=== PATIENT | female | born 1985 | race Caucasian/White ===

== ENCOUNTER → 2017-08-15 07:37 | Outpatient (CLI) | payer OTHER, SELFPAY ==
--- NOTE | 2017-08-15 07:41 | US_ITS ---
US abdomen limited: HISTORY: Epigastric pain and cramping ITS.REASON: RUQ PAIN, UPPER EPIGASTRIC PAIN ORDERING PHYSICIAN: Siddharth Padilla MD PATIENT AGE: 32 years COMPARISON: None FINDINGS: PANCREAS: Unremarkable. No obvious mass or abnormal fluid collection. No ductal dilatation LIVER: No focal liver lesions demonstrated. Homogeneous echogenicity. No intrahepatic biliary ductal dilatation evident RIGHT KIDNEY: Unremarkable. Normal size and echogenicity. No hydronephrosis GALLBLADDER: No gallstones, gallbladder wall thickening, pericholecystic fluid, or biliary dilatation. IMPRESSION: Negative gallbladder/right upper quadrant ultrasound
== END ==
PROVIDERS: PCP Family Medicine; Visit Provider Surgery
DX: R10.11 Right upper quadrant pain (principal); R10.13 Epigastric pain
CPT/HCPCS: 76705

== ENCOUNTER → 2019-08-21 08:45 | Outpatient (CLI) | payer OTHER, SELFPAY ==
[2019-08-21 09:26] LABS: Basophils # 0.1 K/mm3 (0-0.2); Basophils % 0.4 % (0.1-2.0); Eosinophils # 0.3 K/mm3 (0.0-0.4); Eosinophils % 1.7 % (0.1-12.0); Hematocrit 43.2 % (37.0-47.0); Hemoglobin 14.4 g/dL (12.2-16.2); Lymphocytes # 3.3 K/mm3 (0.7-4.5); Lymphocytes % 21.8 % (10-50); Mean Corpuscular HGB Conc 33.3 g/dL (31.8-35.4); Mean Corpuscular Volume 90.2 fl (81-99); Mean Platelet Volume 8.5 fl (7.4-10.4); Monocytes # 0.6 K/mm3 (0.1-1.0); Neutrophils # 10.9 K/mm3 (1.8-7.8); Neutrophils % 72.1 % (37.0-80.0); Platelet Count 495 K/mm3 (142-424); Red Blood Count 4.79 M/mm3 (4.20-5.40); Red Cell Distribution Width 12.3 % (11.5-17.5); White Blood Count 15.1 K/mm3 (4.8-10.8)
[2019-08-21 09:33] LABS: MANUAL DIFFERENTIAL MANUAL DIFFERENTIAL (MANUAL DIFF)
[2019-08-21 09:43] LABS: Alanine Aminotransferase 49 U/L (9-52); Albumin Level 3.7 g/dL (3.4-5.0); Albumin/Globulin Ratio 0.9 (1.1-1.8); Alkaline Phosphatase 107 U/L (46-116); Anion Gap 14.9 mEq/L (5-15); Aspartate Amino Transferase 27 U/L (15-37); Bilirubin,Total 0.5 mg/dL (0.2-1.0); Blood Urea Nitrogen 8 mg/dL (7-18); Calcium 8.8 mg/dL (8.5-10.1); Carbon Dioxide 25 mmol/L (21.0-32.0); Chloride 105 mmol/L (98-107); Chol/HDL Ratio 5.6 (1-3.5); Cholesterol 197 mg/dL (140-200); Creatinine,Serum 0.68 mg/dL (0.55-1.02); Estimated Glomerular Filt Rate 99 ml/min (>60); GFR (African American) 120 ML/MIN (>60); Globulin 4.2 gm/dl (1.3-3.2); Glucose 98 mg/dL (74-106); HDL Cholesterol 35 mg/dL (29-89); LDL Cholesterol 137 mg/dL (0-130); Potassium 3.9 mmoL/L (3.5-5.1); Sodium 141 mmol/L (137-145); Thyroid Stimulating Hormone 4.23 uIU/ml (0.358-3.740); Total Protein,Serum 7.9 g/dL (6.4-8.2); Triglycerides 123 mg/dL (30-200); VLDL Cholesterol 25 mg/dL (0-40)
[2019-08-21 10:32] LABS: Hemoglobin A1C 5.5 % (0.0-7.0)
[2019-08-21 10:50] LABS: Eosinophils % 1 % (0-3); Lymphocytes % 23 % (10-50); Monocytes % 4 % (2-9); Neutrophils % 72 % (42-76); Platelet Estimate Slight Increase; RBC Morphology Normal; Total Cells Counted 100
== END ==
PROVIDERS: Visit Provider Obstetrics & Gynecology Gynecology
DX: Z00.00 Encounter for general adult medical examination without abnormal findings (principal)
CPT/HCPCS: 80053; 80061; 83036; 83525; 84443; 85007; 85025

== ENCOUNTER 2019-09-04 03:53 | Inpatient (IN) ==
[2019-09-04 04:14] LABS: Chloride 101 mmol/L (98-107); Sodium 136 mmol/L (136-145)
[2019-09-04 04:17] LABS: Amylase 35 U/L (30-110); Anion Gap 14.7 mEq/L (5-15); Blood Urea Nitrogen 7 mg/dl (7-17); Calcium 9.1 mg/dl (8.4-10.2); Carbon Dioxide 24 mmol/L (22.0-30.0); Glucose 148 mg/dl (74-100)
[2019-09-04 04:18] LABS: Basophils # 0.1 K/mm3 (0-0.2); Basophils % 0.3 % (0.1-2.0); Eosinophils # 0.4 K/mm3 (0.0-0.4); Eosinophils % 1.5 % (0.1-12.0); Hematocrit 43.8 % (37.0-47.0); Hemoglobin 14.8 g/dL (12.2-16.2); Lymphocytes # 4.5 K/mm3 (0.7-4.5); Lymphocytes % 17.3 % (10-50); Mean Corpuscular HGB Conc 33.9 g/dL (31.8-35.4); Mean Corpuscular Volume 89.2 fl (81-99); Mean Platelet Volume 7.6 fl (7.4-10.4); Monocytes # 1.4 K/mm3 (0.1-1.0); Monocytes % 5.2 % (1.7-9.3); Neutrophils # 19.7 K/mm3 (1.8-7.8); Neutrophils % 75.7 % (37.0-80.0); Platelet Count 629 K/mm3 (142-424); Red Blood Count 4.91 M/mm3 (4.20-5.40); Red Cell Distribution Width 12.1 % (11.5-17.5)
[2019-09-04 04:47] LABS: Bilirubin,Indirect 0.6 mg/dL (0.0-0.9); Bilirubin,Total 0.6 mg/dl (0.2-1.3); Bilirubin,Unconjugated 0.6 mg/dL (0.0-1.1)
[2019-09-04 04:48] LABS: Total Protein,Serum 7.4 g/dl (6.3-8.2)
[2019-09-04 05:34] LABS: Eosinophils % 2 % (0-3); Lymphocytes % 25 % (10-50); Monocytes % 2 % (2-9); Neutrophils % 71 % (42-76); Total Cells Counted 100
[2019-09-04 05:35] LABS: RBC Morphology Normal
--- NOTE | 2019-09-04 05:42 | Emergency Department Note ---
ED Disposition Clinical Impression: Atrial fibrillation Qualifiers: Atrial fibrillation type: unspecified Qualified Code(s): I48.91 - Unspecified atrial fibrillation Leukocytosis Qualifiers: Leukocytosis type: unspecified Qualified Code(s): D72.829 - Elevated white blood cell count, unspecified Disposition: Admitted as Observation Condition on Discharge: Good Referrals: Provider,Referral, [Primary Care Provider] - - Critical Care Critical Care Time: No Attestation: On 09/04/19, the high probability of a clinically significant, sudden or life threatening deterioration of the following system(s) required my full and direct attention, intervention and personal management. The time I documented below is in addition to time spent performing reported procedures but includes the following listed in this critical care notation. Medical Decision Making - Medical Records Medical records reviewed: Yes: I reviewed the patient's medical records. - Juve Inquiry Pt receiving controlled substance: No Vital Signs: 09/04/19 03:54 09/04/19 04:13 09/04/19 04:29 Temperature 99.9 F H Temperature Source Oral Pulse Rate [Right] 167 H 165 H 159 H Respiratory Rate 20 16 Blood Pressure [Right Arm] 131/97 H 125/95 H 153/76 H Blood Pressure Mean [Right Arm] 108 105 101 02 Sat by Pulse Oximetry 97 96 97 Oxygen Delivery Method Room Air Room Air 09/04/19 04:38 09/04/19 04:58 09/04/19 05:06 Temperature Temperature Source Pulse Rate [Right] 153 H 167 H 154 H Respiratory Rate Blood Pressure [Right Arm] 117/71 145/108 H 138/77 Blood Pressure Mean [Right Arm] 86 120 97 02 Sat by Pulse Oximetry 97 95 Oxygen Delivery Method Room Air 09/04/19 05:37 Temperature Temperature Source Pulse Rate [Right] 178 H Respiratory Rate Blood Pressure [Right Arm] 107/76 L Blood Pressure Mean [Right Arm] 86 02 Sat by Pulse Oximetry Oxygen Delivery Method - Lab Data Lab results reviewed: Yes: I reviewed the patient's lab results. Lab Results 09/04/19 03:50: WBC 26.0 H*, RBC 4.91, Hgb 14.8, Hct 43.8, MCV 89.2, MCH 30.2, MCHC 33.9, RDW 12.1, Plt Count 629 H, MPV 7.6, Neut % (Auto) 75.7, Lymph % (Auto) 17.3, [place] % (Auto) 5.2, Eos % (Auto) 1.5, Baso % (Auto) 0.3, Neut # (Auto) 19.7 H, Lymph # (Auto) 4.5, [place] # (Auto) 1.4 H, Eos # (Auto) 0.4, Baso # (Auto) 0.1, Total Counted 100, Neutrophils % (Manual) 71, Lymphocytes % (Manual) 25, Monocytes % (Manual) 2, Eosinophils % (Manual) 2, Platelet Estimate Normal, RBC Morphology Normal 09/04/19 03:50: Sodium 136, Potassium 3.7, Chloride 101, Carbon Dioxide 24, Anion Gap 14.7, BUN 7, Creatinine 0.60, Estimated Creat Clear 152, Estimated GFR 114, Est GFR ( Amer) 138, Glucose 148 H, Calcium 9.1, Troponin I < 0.01, Amylase 35, Lipase 62 09/04/19 03:50: Influenza Type A Ag Negative, Influenza Type B Ag Negative 09/04/19 03:50: Total Bilirubin 0.6, Direct Bilirubin 0.0, Conjugated Bilirubin 0.0, Indirect Bilirubin 0.6, Unconjugated Bilirubin 0.6, AST 48 H, ALT 63, Alkaline Phosphatase 129 H, Total Protein 7.4, Albumin 4.0 09/04/19 03:50: Thyroxine (T4) 12.5 H 09/04/19 04:35: Lactate 1.2 Result diagrams: 09/04/19 03:50 09/04/19 03:50 Orders (Tests/Meds): ED MEDICATIONS Generic Name Dose Route Start Last Admin Trade Name Freq PRN Reason Stop Dose Admin Sodium Chloride 1,000 mls @ 999 mls/hr 09/04/19 04:15 09/04/19 04:10 Sod Chlor 0.9% 1000ml Bag IV 09/04/19 05:15 999 mls/hr .Q1H1M ALFA Administration Diltiazem HCl 100 mg/ Sodium 100 mls @ 5 mls/hr 09/04/19 04:19 09/04/19 04:10 Chloride IV 10/04/19 04:18 5 mls/hr .Q20H ALFA Administration Discontinued Medications Generic Name Dose Route Start Last Admin Trade Name Freq PRN Reason Stop Dose Admin Diltiazem HCl 10 mg 09/04/19 04:04 09/04/19 04:05 Cardizem 25mg/5ml Vial IV 09/04/19 04:05 10 mg ONCE ONE Administration ORDERS Category Date Time Status T4 (Thyroxine) Stat Lab 09/04/19 03:50 Results Thyroid Stimulating Hormone Stat Lab 09/04/19 03:50 Results Troponin I Q3H Lab 09/04/19 07:15 Ordered Troponin I Q3H Lab 09/04/19 10:15 Ordered Urinalysis and Microscopic Stat Lab 09/04/19 04:03 Ordered Blood Culture Stat Micro 09/04/19 04:35 Received - Radiology Data #1 Image(s): Chest Image Reviewed: Yes I reviewed the patient's radiology image Preliminary Findings: Normal/NAD - ECG Data Tracing #1 Arrhythmias present: afib Ischemic changes: non-specific ST-T wave changes - Physician Consults Physician Consulted: alejandro Reason -: Admission Arrhythmia/Palpitations HPI - General Chief Complaint: Arrhythmia/Palpitations Stated Complaint: NEW ONSET AFIB Time Seen by Provider: 09/04/19 04:00 Mode of Arrival: Ambulatory Source of Information: Patient, Medical Record Limitations: No Limitations - History of Present Illness HPI narrative: onset of inc heart rate this am - no chest pain or syncope - pt with hx of thyroid disease - MD complaint: "heart racing" Onset (ago): hour(s) Duration: constant Severity: moderate Context: occurred during rest Associated symptoms: denies other symptoms - Related Data Home Medications Medication Instructions Recorded Confirmed Aspirin [Aspir 81] 81 mg PO DAILY 08/29/19 09/04/19 Escitalopram Oxalate [Lexapro] 20 mg PO DAILY 08/29/19 09/04/19 Esomeprazole Magnesium [Nexium] 40 mg PO DAILY 08/29/19 09/04/19 Levothyroxine Sodium 125 mcg PO DAILY 08/29/19 09/04/19 [Levothyroxine 125mcg (0.125mg) Tab] Norethindrone 1 tab PO DAILY 08/29/19 09/04/19 carvediloL [Carvedilol 6.25mg Tab] 6.25 mg PO BID 08/29/19 09/04/19 Azithromycin 1 tab PO DAILY 09/04/19 09/04/19 Brompheniramine/Pseudoephed/Dm 473 ml PO NEEDED PRN 09/04/19 09/04/19 [Ekwkqnaapl-Nnvgnyljfxc-Am Syr] Ondansetron [Zofran 4mg ODT] 4 mg PO Q6H PRN 09/04/19 09/04/19 predniSONE [Deltasone 20mg 1 tab PO DAILY 09/04/19 09/04/19 tablet] Allergies Allergy/AdvReac Type Severity Reaction Status Date / Time No Known Allergies Allergy Unverified 06/25/17 14:44 [facility] History - Hepatitis A Screen Drug use history?: No High risk sexual behaviors?: No History of sexually transmitted infection?: No Currently employed?: No Childcare worker?: No Do you have indoor plumbing?: Yes Do you have electricity?: Yes Attestation statement:: This patient has been screened for Hepatitis A risk factors. I have reviewed the patient's past medical history: Yes - Social History Smoking Status: Current every day smoker Tobacco Type: cigarettes # Packs/Day (cigarettes): 1 Alcohol Intake: never Occupational Status: employed ROS Obtained: Yes All systems reviewed & no additional complaints - Constitutional Constitutional: Denies fever(s) - Eyes Eyes: Denies change in vision - ENT Ears, Nose, Mouth, and Throat: Denies sore throat - Cardiovascular Cardiovascular: Denies chest pain, Denies dyspnea, Reports rapid heart rate - Respiratory Respiratory: No cough - Gastrointestinal Gastrointestingal: Denies: abdominal pain, vomiting - Genitourinary Female Genitourinary: Denies hematuria - Musculoskeletal Musculoskeletal: Denies joint pain - Integumentary/Breasts Skin/Breast: Denies rash - Neurologic Neurologic: Denies focal weakness, Denies frequent falls, Denies seizure-like activity Physical Exam - General General appearance: alert - Head Head exam: normocephalic - Eye Eye exam: Present: PERRL, EOMI. Absent: scleral icterus - ENT ENT exam: Present: mucous membranes dry - Neck Neck exam: Present: trachea midline - Respiratory Respiratory exam: Present: normal lung sounds bilaterally. Absent: respiratory distress - Cardiovascular Cardiovascular exam: Present: irregular rhythm - Abdominal Exam Abdominal exam: Present: soft - Extremities Exam Extremities exam: Absent: calf tenderness - Neurological Exam Neurological exam: Present: alert, oriented X3, CN II-XII intact - Psychiatric Psychiatric exam: Present: normal affect - Skin Skin exam: Absent: rash
[2019-09-04 05:47] LABS: Thyroid Stimulating Hormone 6.75 uIU/mL (0.465-4.68)
[2019-09-04 05:59] LABS: Microscopic, Urine URINE MICROSCOPIC (MICROSCOPIC)
[2019-09-04 06:11] LABS: Appearance,Urine CLEAR (Clear); Bilirubin,Urine Negative (Negative); Blood, Urine Negative (Negative); Color,Urine YELLOW (Yellow); Glucose,Urine (UA) Negative (Negative); Ketones,Urine Negative (Negative); Leukocyte Esterase,Urine 1+ (Negative); Protein,Urine Negative (Negative); Urobilinogen,Urine 0.2 EU/dl (0.2)
[2019-09-04 06:24] LABS: Bacteria,Urine 1+ /lpf; RBC,Urine Occasional #/hpf (0-3)
--- NOTE | 2019-09-04 07:15 | Pharmacy Consult Notes ---
[facility] Pharmacy VTE Monitoring - Patient Demographics Admission date: 09/04/19 Report Date: 09/04/19 Time: 07:15 Allergies/Adverse Reactions: Patient Allergies No Known Allergies Allergy (Unverified 06/25/17 14:44) Height: 1.83 m Weight: 145.15 kg Patient Problems: Current Active Problems Atrial fibrillation (Acute) Leukocytosis (Acute) - VTE Risk Labs: VTE Related Lab Results Hgb 14.8 g/dL (12.2-16.2) 09/04/19 03:50 Hct 43.8 % (37.0-47.0) 09/04/19 03:50 Plt Count 629 K/mm3 (142-424) H 09/04/19 03:50 BUN 7 mg/dl (7-17) 09/04/19 03:50 Creatinine 0.60 mg/dl (0.52-1.04) 09/04/19 03:50 Estimated Creat Clear 152 mL/min (50-200) 09/04/19 03:50 VTE Risk Level: Low Risk - Prophylaxis VTE Prophylaxis Ordered?: Yes Types of VTE Prophylaxis: TEDS Knee High Location of Applied Device: Bilateral Lower Extremeties - VTE Diagnosis Confirmed Treatment or plan recommended: Continue Current Treatment
--- NOTE | 2019-09-04 07:59 | History & Physical Report ---
*Admission Date: 09/04/19 *Chief complaint: Fluttering in chest *History of present illness: 34-year-old female with hypothyroidism presented to the emergency department from home after persistent fluttering sensation in the chest that radiated through to the back. Patient admits she has had occasional fluttering sensations in the past but over the last week had had a few more episodes than usual. She did not have chest pain and felt maybe like she could not get a deep breath. Otherwise she denies changes in health and admits she has not been ill. She presented to the ER where she was found to be in atrial fibrillation. Patient was started on a Cardizem drip and admitted to the stepdown unit. Since admission her heart rate is generally been in the 130s and irregular although will have brief periods where it appears as if she is trying to convert back to sinus rhythm. Patient once again denies chest pain, significant dyspnea. She has been taking her medicines as prescribed. Patient's TSH was elevated as was her T4 [facility] History I have reviewed the patient's past medical history: Yes Medical History: Reports:: Gastroesophageal Reflux Disease(GERD), Palpitations *Have you ever received a pneumonia vaccine?: No *Have you received a flu vaccine this season?: Yes Other Medical History: Reports: Hypothyroidism Comment:: Hypothyroidism - *Social History Educational Level: Completed College Smoking Status: Current every day smoker Tobacco Type: cigarettes # Packs/Day (cigarettes): 1 Alcohol Intake: current Alcohol Intake Frequency:: holidays/special occasions only *Occupational Status:: employed *Travel in the last 8 weeks: None Family Hx:: Asthma, Diabetes, Heart Attack, Hyperlipidemia, Hypertension, Stroke, Thyroid Disorder Review of Systems - Constitutional Denies body ache(s), Denies chills, Denies excessive sweating, Denies fatigue, Denies fever(s), Denies malaise, Denies night sweats - *Cardiovascular Denies chest pain, Denies chest pain at rest, Denies chest pain with activity - *Respiratory Denies change in phlegm color, Denies chest congestion, Denies cough, Denies shortness of breath - *Gastrointestinal Denies abdominal pain, Denies belching - *Genitourinary Denies abnormal periods - *Neurologic Denies localized weakness, Denies frequent falls, Denies seizure-like activity Meds Home Medications Medication Instructions Recorded Confirmed Type Aspirin [Aspir 81] 81 mg PO DAILY 08/29/19 09/04/19 History Escitalopram Oxalate [Lexapro] 20 mg PO DAILY 08/29/19 09/04/19 History Esomeprazole Magnesium [Nexium] 40 mg PO DAILY 08/29/19 09/04/19 History Levothyroxine Sodium 125 mcg PO DAILY 08/29/19 09/04/19 History [Levothyroxine 125mcg (0.125mg) Tab] carvediloL [Carvedilol 6.25mg Tab] 6.25 mg PO BID 08/29/19 09/04/19 History Brompheniramine/Pseudoephed/Dm 5 ml PO Q6HP PRN 09/04/19 09/04/19 History [Vvzhqqqiuj-Wmgnnmuoovf-Cu Syr] Norethindrone 0.35 mg PO DAILY 09/04/19 09/04/19 History Ondansetron [Zofran 4mg ODT] 4 mg PO Q6HP PRN 09/04/19 09/04/19 History Allergies Allergy/AdvReac Type Severity Reaction Status Date / Time No Known Allergies Allergy Unverified 06/25/17 14:44 Exam Vital signs and Labs for Last 24 Hours: Temp Pulse Resp BP Pulse Ox 99.2 F 152 H 16 134/96 H 95 09/04/19 06:05 09/04/19 06:05 09/04/19 06:05 09/04/19 06:05 09/04/19 05:06 Laboratory Results - last 24 hr 09/04/19 03:50: WBC 26.0 H*, RBC 4.91, Hgb 14.8, Hct 43.8, MCV 89.2, MCH 30.2, MCHC 33.9, RDW 12.1, Plt Count 629 H, MPV 7.6, Neut % (Auto) 75.7, Lymph % (Auto) 17.3, [place] % (Auto) 5.2, Eos % (Auto) 1.5, Baso % (Auto) 0.3, Neut # (Auto) 19.7 H, Lymph # (Auto) 4.5, [place] # (Auto) 1.4 H, Eos # (Auto) 0.4, Baso # (Auto) 0.1, Total Counted 100, Neutrophils % (Manual) 71, Lymphocytes % (Manual) 25, Monocytes % (Manual) 2, Eosinophils % (Manual) 2, Platelet Estimate Normal, RBC Morphology Normal 09/04/19 03:50: Sodium 136, Potassium 3.7, Chloride 101, Carbon Dioxide 24, Anion Gap 14.7, BUN 7, Creatinine 0.60, Estimated Creat Clear 152, Estimated GFR 114, Est GFR ( Amer) 138, Glucose 148 H, Calcium 9.1, Troponin I < 0.01, Amylase 35, Lipase 62 09/04/19 03:50: Influenza Type A Ag Negative, Influenza Type B Ag Negative 09/04/19 03:50: Total Bilirubin 0.6, Direct Bilirubin 0.0, Conjugated Bilirubin 0.0, Indirect Bilirubin 0.6, Unconjugated Bilirubin 0.6, AST 48 H, ALT 63, Alkaline Phosphatase 129 H, Total Protein 7.4, Albumin 4.0 09/04/19 03:50: TSH 6.75 H, Thyroxine (T4) 12.5 H 09/04/19 03:50: Magnesium 1.8 09/04/19 04:35: Lactate 1.2 09/04/19 05:51: Urine Color Yellow, Urine Appearance Clear, Urine pH 6.0, Ur Specific [place] 1.010, Urine Protein Negative, Urine Glucose (UA) Negative, Urine Ketones Negative, Urine Blood Negative, Urine Nitrate Negative, Urine Bilirubin Negative, Urine Urobilinogen 0.2, Ur Leukocyte Esterase 1+ A, Urine RBC Occasional, Urine WBC 5-10, Ur Squamous Epith Cells 3-5, Urine Bacteria 1+ I & O for Last 24 hours: Intake & Output 09/01/19 09/02/19 09/03/19 09/04/19 11:59 11:59 11:59 11:59 Intake Total 1999 Balance 1999 Weight 320 lb - *Routine HEENT Exam Head: Present: normocephalic Eye: Present: EOMI, PERRL ENT: Present: mucous membranes moist - *Routine Neck Exam Present: supple. Absent: lymphadenopathy - *Routine Respiratory Exam Present: CTA bilaterally - *Routine Cardiovascular Exam Present: irregular rhythm, irregularly irregular - *Routine Abdominal Exam Present: soft, normoactive bowel sounds. Absent: tenderness - *Routine Extremities Exam Absent: cyanosis, clubbing, edema - *Routine Skin Exam Present: warm. Absent: rash - *Routine Neurological Exam Present: alert, oriented X3 - Detailed Eye Exam Eyelids: Left normal inspection Assessment and Plan (1) Atrial fibrillation Current visit: Yes Status: Acute Qualifiers: Atrial fibrillation type: unspecified Qualified Code(s): I48.91 - Unspecified atrial fibrillation Category: Medical Code(s): I48.91 - Unspecified atrial fibrillation (2) Leukocytosis Current visit: Yes Status: Acute Qualifiers: Leukocytosis type: unspecified Qualified Code(s): D72.829 - Elevated white blood cell count, unspecified Category: Medical Code(s): D72.829 - Elevated white blood cell count, unspecified (3) Hypothyroidism Current visit: Yes Status: Acute Category: Medical Code(s): E03.9 - Hypothyroidism, unspecified - Assessment and plan all Dx Assessment and Plan for all problems:: Continue Cardizem drip. Cardiology consult. Patient be given oral metoprolol 25 mg every 6 hours and has been ordered a single dose of digoxin 0.25 mg this morning
--- NOTE | 2019-09-04 08:51 | Consult Report ---
History of Present Illness Consult date: 09/04/19 Requesting physician: Arian Rao Consult reason: atrial fibrillation Chief complaint: Rapid HR Additional Medical History:: 1. Normal stress myoview in 2016 2. Hypothyroidism, on replacement 3. GERD 4. Atrial fibrillation/atrial flutter with rapid ventricular response, 08/2019 A. CHADS-VASC score of 1 (female) History of present illness: 34-year-old female with hypothyroidism presented to the emergency department from home after persistent fluttering sensation in the chest that radiated through to the back. Patient admits she has had occasional fluttering sensations in the past but over the last week had had a few more episodes than usual. She did not have chest pain and felt maybe like she could not get a deep breath. Otherwise she denies changes in health and admits she has not been ill. She presented to the ER where she was found to be in atrial fibrillation. Patient was started on a Cardizem drip and admitted to the stepdown unit. Since admission her heart rate is generally been in the 130s and irregular although will have brief periods where it appears as if she is trying to convert back to sinus rhythm. Patient once again denies chest pain, significant dyspnea. She has been taking her medicines as prescribed. Patient's TSH was elevated as was her T4 The above per Dr. Rao Pt relates one week of fever that has been treated with ibuprofen and tylenol with some success. UTC evaluation last Saturday, flu neg, started on steroids (20 mg BID for 4-5 days). Three days ago she developed palpitations intermittently that continued to worsen until last evening she had sustained irregular HR that prompted ER evaluation. Noted to be in A. fib with RVR and started on cardizem gtt with mild success at rate control. Given metoprolol and IV digoxin this AM without conversion. Recently started ASA daily No cardiac history personally but Father with CAD No tobacco or excess ETOH use No diabetes or HLD No stimulant use Cardiology consulted for evaluation and recommendations. CHADS-VASC score of 1 (female) [facility] History Medical History: Reports:: Gastroesophageal Reflux Disease(GERD), Hypertension, Palpitations *Have you ever received a pneumonia vaccine?: No *Have you received a flu vaccine this season?: Yes Other Medical History: Reports: Hypothyroidism - *Social History Educational Level: Completed College Smoking Status: Current every day smoker Tobacco Type: cigarettes # Packs/Day (cigarettes): 1 Alcohol Intake: current Alcohol Intake Frequency:: holidays/special occasions only *Occupational Status:: employed *Travel in the last 8 weeks: None Family Hx:: Asthma, Diabetes, Heart Attack, Hyperlipidemia, Hypertension, Stroke, Thyroid Disorder Meds Home Medications Medication Instructions Recorded Confirmed Type Aspirin [Aspir 81] 81 mg PO DAILY 08/29/19 09/04/19 History Escitalopram Oxalate [Lexapro] 20 mg PO DAILY 08/29/19 09/04/19 History Esomeprazole Magnesium [Nexium] 40 mg PO DAILY 08/29/19 09/04/19 History Levothyroxine Sodium 125 mcg PO DAILY 08/29/19 09/04/19 History [Levothyroxine 125mcg (0.125mg) Tab] carvediloL [Carvedilol 6.25mg Tab] 6.25 mg PO BID 08/29/19 09/04/19 History Brompheniramine/Pseudoephed/Dm 5 ml PO Q6HP PRN 09/04/19 09/04/19 History [Zgtynqvvls-Kzimgsebupz-Cb Syr] Norethindrone 0.35 mg PO DAILY 09/04/19 09/04/19 History Ondansetron [Zofran 4mg ODT] 4 mg PO Q6HP PRN 09/04/19 09/04/19 History Allergies Allergy/AdvReac Type Severity Reaction Status Date / Time No Known Allergies Allergy Unverified 06/25/17 14:44 Review of Systems - Review of Systems Review of systems:: pertinent systems reviewed and negative unless documented below - Constitutional Reports fever(s) - ENT Denies dizziness - *Cardiovascular Reports fast heart rate, Denies chest pain - *Respiratory Denies cough, Denies shortness of breath - *Gastrointestinal Denies loose stools, Denies nausea, Denies vomiting - *Genitourinary Denies blood in urine - *Musculoskeletal Denies joint pain, Denies back pain - *Neurologic Denies localized weakness, Denies frequent falls, Denies seizure-like activity Exam Vital signs and Labs for Last 24 Hours: Temp Pulse Resp BP Pulse Ox 99.2 F 156 H 16 134/96 H 96 09/04/19 06:05 09/04/19 08:29 09/04/19 06:05 09/04/19 06:05 09/04/19 08:00 Laboratory Results - last 24 hr 09/04/19 03:50: WBC 26.0 H*, RBC 4.91, Hgb 14.8, Hct 43.8, MCV 89.2, MCH 30.2, MCHC 33.9, RDW 12.1, Plt Count 629 H, MPV 7.6, Neut % (Auto) 75.7, Lymph % (Auto) 17.3, [place] % (Auto) 5.2, Eos % (Auto) 1.5, Baso % (Auto) 0.3, Neut # (Auto) 19.7 H, Lymph # (Auto) 4.5, [place] # (Auto) 1.4 H, Eos # (Auto) 0.4, Baso # (Auto) 0.1, Total Counted 100, Neutrophils % (Manual) 71, Lymphocytes % (Manual) 25, Monocytes % (Manual) 2, Eosinophils % (Manual) 2, Platelet Estimate Normal, RBC Morphology Normal 09/04/19 03:50: Sodium 136, Potassium 3.7, Chloride 101, Carbon Dioxide 24, Anion Gap 14.7, BUN 7, Creatinine 0.60, Estimated Creat Clear 152, Estimated GFR 114, Est GFR ( Amer) 138, Glucose 148 H, Calcium 9.1, Troponin I < 0.01, Amylase 35, Lipase 62 09/04/19 03:50: Influenza Type A Ag Negative, Influenza Type B Ag Negative 09/04/19 03:50: Total Bilirubin 0.6, Direct Bilirubin 0.0, Conjugated Bilirubin 0.0, Indirect Bilirubin 0.6, Unconjugated Bilirubin 0.6, AST 48 H, ALT 63, Alkaline Phosphatase 129 H, Total Protein 7.4, Albumin 4.0 09/04/19 03:50: TSH 6.75 H, Thyroxine (T4) 12.5 H 09/04/19 03:50: Magnesium 1.8 09/04/19 04:35: Lactate 1.2 09/04/19 05:51: Urine Color Yellow, Urine Appearance Clear, Urine pH 6.0, Ur Specific [place] 1.010, Urine Protein Negative, Urine Glucose (UA) Negative, Urine Ketones Negative, Urine Blood Negative, Urine Nitrate Negative, Urine Bilirubin Negative, Urine Urobilinogen 0.2, Ur Leukocyte Esterase 1+ A, Urine RBC Occasional, Urine WBC 5-10, Ur Squamous Epith Cells 3-5, Urine Bacteria 1+ I & O for Last 24 hours: Intake & Output 09/01/19 09/02/19 09/03/19 09/04/19 11:59 11:59 11:59 11:59 Intake Total 1999 Balance 1999 Weight 320 lb - *Routine HEENT Exam Head: Present: normocephalic Eye: Present: EOMI, PERRL ENT: Present: mucous membranes moist - *Routine Neck Exam Present: supple. Absent: JVD, carotid bruit - *Routine Respiratory Exam Present: CTA bilaterally. Absent: accessory muscle use, rales, rhonchi, wheezes - *Routine Cardiovascular Exam Present: tachycardia, irregularly irregular. Absent: murmur, gallop, rubs - *Routine Abdominal Exam Present: soft. Absent: tenderness, distended, guarding - *Routine Extremities Exam Absent: edema, calf tenderness - *Routine Neurological Exam Present: alert, oriented X3, moving all extremities Assessment and Plan (1) Atrial fibrillation Current visit: Yes Status: Acute Qualifiers: Atrial fibrillation type: unspecified Qualified Code(s): I48.91 - Unspecified atrial fibrillation Category: Medical Code(s): I48.91 - Unspecified atrial fibrillation (2) Leukocytosis Current visit: Yes Status: Acute Qualifiers: Leukocytosis type: unspecified Qualified Code(s): D72.829 - Elevated white blood cell count, unspecified Category: Medical Code(s): D72.829 - Elevated white blood cell count, unspecified (3) Hypothyroidism Current visit: Yes Status: Acute Category: Medical Code(s): E03.9 - Hypothyroidism, unspecified - Assessment and plan all Dx Assessment and Plan for all problems:: 1. A. fib/flutter with RVR felt related to infectious issue (elevated WBC and fever but negative CXR, ?UTI vs poor specimen). Will stop cardizem and continue digoxin with metoprolol. CHADS-VASC score of 1, on ASA, will give one dose of lovenox with plans to proceed with MARGO/cardioversion later today if still needed. Further recommendations to follow. 2. History of hypertension, would discontinue carvedilol in favor of metoprolol.
[2019-09-04 11:25] LABS: Basophils # 0.1 K/mm3 (0-0.2); Basophils % 0.3 % (0.1-2.0); Eosinophils # 0.3 K/mm3 (0.0-0.4); Hematocrit 39.3 % (37.0-47.0); Lymphocytes % 13.5 % (10-50); Mean Corpuscular HGB Conc 32.9 g/dL (31.8-35.4); Mean Corpuscular Volume 91.7 fl (81-99); Mean Platelet Volume 7.7 fl (7.4-10.4); Monocytes # 1.2 K/mm3 (0.1-1.0); Monocytes % 3.9 % (1.7-9.3); Neutrophils # 24.3 K/mm3 (1.8-7.8); Neutrophils % 81.4 % (37.0-80.0); Platelet Count 676 K/mm3 (142-424); Red Blood Count 4.29 M/mm3 (4.20-5.40); Red Cell Distribution Width 12.2 % (11.5-17.5)
[2019-09-04 11:27] LABS: White Blood Count 29.2 K/mm3 (4.8-10.8)
[2019-09-04 11:31] LABS: Hemoglobin 12.9 g/dL (12.2-16.2)
[2019-09-04 11:33] LABS: Chloride 107 mmol/L (98-107); Sodium 138 mmol/L (136-145)
[2019-09-04 11:36] LABS: Anion Gap 10.4 mEq/L (5-15); Blood Urea Nitrogen 6 mg/dl (7-17); Carbon Dioxide 24 mmol/L (22.0-30.0); Glucose 125 mg/dl (74-100)
[2019-09-04 11:53] LABS: Calcium 7.9 mg/dl (8.4-10.2)
[2019-09-04 13:09] LABS: Coronavirus 229E Not Detected (NotDetected); Coronavirus NL63 Not Detected (NotDetected); Coronavirus OC43 Not Detected (NotDetected); Coronovirus HKU1,PCR Not Detected (NotDetected)
--- NOTE | 2019-09-04 13:33 | Cardiology Report ---
APPROVED REPORT EXAM: Comprehensive 2D, Doppler, and color-flow Echocardiogram Cattle Dealer: Rita Curiel RDCS Ht: 6 ft 0 in Wt: 320lbs BSA: 2.60 BP: 90/54 mmHg Indications: Diabetes, Obesity, Atrial Fibrillation (new onset) M-Mode Dimensions RVDd 3.23 cm (0.9-2.6)LVDd 4.95 cm (3.5-5.7) LVDs 3.85 cm (3.5-5.7)IVSd 0.77 cm (0.6-1.1) PWd 0.91 cm (0.6-1.1)EF (Teich) 44.70% FS 22.20% EDV (Teich) 115.50 mL ESV (Teich) 63.90 mL LV Diastology E/A Ratio 1.68 Mitral Valve MV A Velocity 25.00 (40-130 cm/s) Left Ventricle Left atrium is normal size, left ventricle is normal size, there is no concentric left ventricular hypertrophy, visually estimated ejection fraction 55% with no regional wall motion abnormality, diastolic parameters are inconclusive. Right Ventricle Right atrium and right ventricular normal size and contractility, there is no early diastolic collapse of the right ventricle seen. Aortic Valve Aortic valve is grossly normal, there is no aortic stenosis or aortic insufficiency. Mitral Valve Mitral valve is grossly normal, there is trace mitral regurgitation. Tricuspid Valve Tricuspid valve is grossly normal, there is trace tricuspid regurgitation, tricuspid regurgitation jet velocity is inadequate for calculation of the right ventricular systolic pressure. Pulmonic Valve Pulmonic valve is poorly visualized. Great Vessels Aortic root is normal size. Pericardium There is moderate sized circumferential pericardial effusion noted, without Doppler evidence of raised intrapericardial pressure or tamponade physiology. Inferior vena cava is not well-visualized. Conclusion 1. Normal left ventricular size, preserved left ventricular systolic function, visually estimated ejection fraction of 55% with no regional wall motion abnormality, there is no ventricular interdependence seen, diastolic parameters are inconclusive. 2. Trace mitral and tricuspid regurgitation. 3. Moderate-sized circumferential pericardial effusion noted without Doppler evidence of raised intrapericardial pressure or tamponade physiology, inferior vena cava is not well-visualized. Electronically signed by : Todd Maradiaga, 09/04/2019 13:33:03
--- NOTE | 2019-09-04 17:45 | Sepsis Event Note ---
[facility] Tissue Perfusion Eval Sepsis Re-Evaluation Performed: Yes Date Performed: 09/04/19 Time Performed: 13:00
[2019-09-04 18:00] LABS: Microscopic, Urine URINE MICROSCOPIC (MICROSCOPIC)
[2019-09-04 18:18] LABS: Appearance,Urine CLEAR (Clear); Bilirubin,Urine Negative (Negative); Blood, Urine Negative (Negative); Color,Urine YELLOW (Yellow); Glucose,Urine (UA) Negative (Negative); Ketones,Urine Negative (Negative); Leukocyte Esterase,Urine Negative (Negative); Protein,Urine 1+ (Negative); Specific Gravity, Urine >= 1.030 (1.005-1.030); Urobilinogen,Urine 0.2 EU/dl (0.2)
[2019-09-04 18:21] LABS: Hyaline Casts,Urine Occasional #/lpf (0); Squamous Epithelial Cell,Urine Occasional #/hpf (0-5)
--- NOTE | 2019-09-04 18:26 | Electrocardiograph Report ---
APPROVED REPORT Exam: Resting ECG HR:61 bpm ECG Measurements Heart Rate 61 AXES [place] 162 P 30 QRSd 86 QRS 51 QT 468 T100 QTc 471 <Conclusion> Normal sinus rhythm Consider Anterolateral Ischemia Abnormal ECG Electronically signed by : Franklin Wiley, 09/04/2019 18:26:24
--- NOTE | 2019-09-04 23:07 | Pharmacy Consult Notes ---
- Pharmacy Consult Date: 09/04/19 Time: 15:00 Referring provider: DR. GRAYSON Reason for Consult:: VANCOMYCIN DOSING Allergies and ADEs:: Allergies Allergy/AdvReac Type Severity Reaction Status Date / Time No Known Allergies Allergy Unverified 06/25/17 14:44 Home Medications:: Home Medications Medication Instructions Recorded Confirmed Type Aspirin [Aspir 81] 81 mg PO DAILY 08/29/19 09/04/19 History Escitalopram Oxalate [Lexapro] 20 mg PO DAILY 08/29/19 09/04/19 History Esomeprazole Magnesium [Nexium] 40 mg PO DAILY 08/29/19 09/04/19 History Levothyroxine Sodium 125 mcg PO DAILY 08/29/19 09/04/19 History [Levothyroxine 125mcg (0.125mg) Tab] carvediloL [Carvedilol 6.25mg Tab] 6.25 mg PO BID 08/29/19 09/04/19 History Brompheniramine/Pseudoephed/Dm 5 ml PO Q6HP PRN 09/04/19 09/04/19 History [Dtclyqtadu-Jhrielfzazz-Dc Syr] Norethindrone 0.35 mg PO DAILY 09/04/19 09/04/19 History Ondansetron [Zofran 4mg ODT] 4 mg PO Q6HP PRN 09/04/19 09/04/19 History Height: 1.83 m Weight: 148.041 kg Laboratory Results:: Laboratory Results - last 24 hr 09/04/19 03:50: WBC 26.0 H*, RBC 4.91, Hgb 14.8, Hct 43.8, MCV 89.2, MCH 30.2, MCHC 33.9, RDW 12.1, Plt Count 629 H, MPV 7.6, Neut % (Auto) 75.7, Lymph % (Auto) 17.3, [place] % (Auto) 5.2, Eos % (Auto) 1.5, Baso % (Auto) 0.3, Neut # (Auto) 19.7 H, Lymph # (Auto) 4.5, [place] # (Auto) 1.4 H, Eos # (Auto) 0.4, Baso # (Auto) 0.1, Total Counted 100, Neutrophils % (Manual) 71, Lymphocytes % (Manual) 25, Monocytes % (Manual) 2, Eosinophils % (Manual) 2, Platelet Estimate Normal, RBC Morphology Normal 09/04/19 03:50: Sodium 136, Potassium 3.7, Chloride 101, Carbon Dioxide 24, Anion Gap 14.7, BUN 7, Creatinine 0.60, Estimated Creat Clear 152, Estimated GFR 114, Est GFR ( Amer) 138, Glucose 148 H, Calcium 9.1, Troponin I < 0.01, Amylase 35, Lipase 62 09/04/19 03:50: Influenza Type A Ag Negative, Influenza Type B Ag Negative 09/04/19 03:50: Total Bilirubin 0.6, Direct Bilirubin 0.0, Conjugated Bilirubin 0.0, Indirect Bilirubin 0.6, Unconjugated Bilirubin 0.6, AST 48 H, ALT 63, Alkaline Phosphatase 129 H, Total Protein 7.4, Albumin 4.0 09/04/19 03:50: TSH 6.75 H, Thyroxine (T4) 12.5 H 09/04/19 03:50: Magnesium 1.8 09/04/19 04:35: Lactate 1.2 09/04/19 05:51: Urine Color Yellow, Urine Appearance Clear, Urine pH 6.0, Ur Specific [place] 1.010, Urine Protein Negative, Urine Glucose (UA) Negative, Urine Ketones Negative, Urine Blood Negative, Urine Nitrate Negative, Urine Bilirubin Negative, Urine Urobilinogen 0.2, Ur Leukocyte Esterase 1+ A, Urine RBC Occasional, Urine WBC 5-10, Ur Squamous Epith Cells 3-5, Urine Bacteria 1+ 09/04/19 07:58: Troponin I < 0.01 09/04/19 11:10: WBC 29.2 H*, RBC 4.29, Hgb 12.9 D, Hct 39.3, MCV 91.7, MCH 30.2, MCHC 32.9, RDW 12.2, Plt Count 676 H, MPV 7.7, Neut % (Auto) 81.4 H, Lymph % (Auto) 13.5, [place] % (Auto) 3.9, Eos % (Auto) 1.0, Baso % (Auto) 0.3, Neut # (Auto) 24.3 H, Lymph # (Auto) 4.0, [place] # (Auto) 1.2 H, Eos # (Auto) 0.3, Baso # (Auto) 0.1 09/04/19 11:10: Sodium 138, Potassium 3.4 L, Chloride 107, Carbon Dioxide 24, Anion Gap 10.4, BUN 6 L, Creatinine 0.60, Estimated Creat Clear 152, Estimated GFR 114, Est GFR ( Amer) 138, Glucose 125 H, Calcium 7.9 L D, Troponin I < 0.01 09/04/19 11:10: Lactate 1.7 09/04/19 11:10: ESR 27 H 09/04/19 11:10: C-Reactive Protein 117.0 H 09/04/19 12:30: Urine Color Yellow, Urine Appearance Clear, Urine pH 6.0, Ur Specific [place] >= 1.030, Urine Protein 1+, Urine Glucose (UA) Negative, Urine Ketones Negative, Urine Blood Negative, Urine Nitrate Negative, Urine Bilirubin Negative, Urine Urobilinogen 0.2, Ur Leukocyte Esterase Negative, Urine WBC 3-5, Ur Squamous Epith Cells Occasional, Hyaline Casts Occasional 09/04/19 13:05: Chlamy pneumoniae PCR Not detected, Adenovirus (PCR) Not detected, B. pertussis DNA (PCR) Not detected, Coronavirus OC43 (PCR) Not detected, Coronavirus HKU1 (PCR) Not detected, Coronavirus 229E (PCR) Not detected, Coronavirus NL63 (PCR) Not detected, Human Metapneumovir PCR Not detected, Influenza A (H1) PCR Not detected, Influ A (H1N1/09) PCR Not detected, Influenza A (H3) PCR Not detected, Influenza Type A (PCR) Not detected, Influenza Type B (PCR) Not detected, M. pneumoniae (PCR) Not detected, Parainfluenza 1 (PCR) Not detected, Parainfluenza 2 (PCR) Not detected, Parainfluenza 3 (PCR) Not detected, Parainfluenza 4 (PCR) Not detected, RSV (PCR) Not detected, Entero/Rhino (PCR) Not detected Medical History: Reports:: Gastroesophageal Reflux Disease(GERD), Hypertension, Palpitations Assessment and Plan (1) Atrial fibrillation Current visit: Yes Status: Acute Qualifiers: Atrial fibrillation type: unspecified Qualified Code(s): I48.91 - Unspecified atrial fibrillation Category: Medical Code(s): I48.91 - Unspecified atrial fibrillation (2) Leukocytosis Current visit: Yes Status: Acute Qualifiers: Leukocytosis type: unspecified Qualified Code(s): D72.829 - Elevated white blood cell count, unspecified Category: Medical Code(s): D72.829 - Elevated white blood cell count, unspecified (3) Hypothyroidism Current visit: Yes Status: Acute Category: Medical Code(s): E03.9 - Hypothyroidism, unspecified - Assessment and plan all Dx Assessment and Plan for all problems:: BASED ON PATIENT'S FACTORS, RECOMMEND STARTING WITH VANCOMYCIN 2500 MG Q8H AT THIS TIME. PHARMACY WILL FOLLOW DAILY AND ADJUST APPROPRIATE.
[2019-09-05 05:57] LABS: Basophils % 0.2 % (0.1-2.0); Eosinophils # 0.2 K/mm3 (0.0-0.4); Eosinophils % 1.1 % (0.1-12.0); Hematocrit 34.9 % (37.0-47.0); Hemoglobin 11.7 g/dL (12.2-16.2); Lymphocytes # 2.9 K/mm3 (0.7-4.5); Lymphocytes % 13.9 % (10-50); Mean Corpuscular HGB Conc 33.4 g/dL (31.8-35.4); Mean Corpuscular Volume 90.3 fl (81-99); Mean Platelet Volume 7.6 fl (7.4-10.4); Monocytes # 0.8 K/mm3 (0.1-1.0); Neutrophils # 16.7 K/mm3 (1.8-7.8); Neutrophils % 80.8 % (37.0-80.0); Platelet Count 429 K/mm3 (142-424); Red Blood Count 3.86 M/mm3 (4.20-5.40); Red Cell Distribution Width 12.1 % (11.5-17.5); White Blood Count 20.7 K/mm3 (4.8-10.8)
[2019-09-05 06:17] LABS: Lymphocytes % 12 % (10-50); Monocytes % 1 % (2-9); Neutrophils % 85 % (42-76); RBC Morphology Normal; Total Cells Counted 100; Toxic Granulation 1+
[2019-09-05 06:57] LABS: Anion Gap 10.6 mEq/L (5-15); Calcium 8.2 mg/dl (8.4-10.2)
--- NOTE | 2019-09-05 07:10 | Progress Note ---
Internal Medicine - PN: Subj *Date: 09/05/19 *Time: 07:06 Interval history: Patient had an eventful last 24 hours. Midmorning yesterday patient became bradycardic and hypotensive. Patient was aggressively treated for severe sepsis. While she lacks known infection she was given a fluid bolus and vancomycin and Rocephin were given as well. She was given atropine for her bradycardia and placed on a Ike-Synephrine drip to maintain her blood pressure. Patient was able to be weaned from the Ike-Synephrine over the course of 4 to 5 hours. Since that time patient has remained stable. She has had at least a 5 pound weight gain in the last 24 hours from fluids that she was given. This morning patient reports some discomfort in the right back otherwise there is no chest pain or shortness of breath. On telemetry monitoring she has remained mostly in a sinus rhythm with premature atrial complexes although there have been some very brief runs of what appears to be atrial fibrillation. Patient's metoprolol was held yesterday evening because patient's heart rate was in the 60s. Exam Vital signs and Labs for Last 24 Hours: Temp Pulse Resp BP Pulse Ox 99.5 F 86 20 145/88 H 94 L 09/05/19 03:23 09/05/19 06:10 09/04/19 20:00 09/05/19 06:10 09/05/19 06:10 Laboratory Results - last 24 hr 09/04/19 07:58: Troponin I < 0.01 09/04/19 11:10: WBC 29.2 H*, RBC 4.29, Hgb 12.9 D, Hct 39.3, MCV 91.7, MCH 30.2, MCHC 32.9, RDW 12.2, Plt Count 676 H, MPV 7.7, Neut % (Auto) 81.4 H, Lymph % (Auto) 13.5, [place] % (Auto) 3.9, Eos % (Auto) 1.0, Baso % (Auto) 0.3, Neut # (Auto) 24.3 H, Lymph # (Auto) 4.0, [place] # (Auto) 1.2 H, Eos # (Auto) 0.3, Baso # (Auto) 0.1 09/04/19 11:10: Sodium 138, Potassium 3.4 L, Chloride 107, Carbon Dioxide 24, Anion Gap 10.4, BUN 6 L, Creatinine 0.60, Estimated Creat Clear 152, Estimated GFR 114, Est GFR ( Amer) 138, Glucose 125 H, Calcium 7.9 L D, Troponin I < 0.01 09/04/19 11:10: Lactate 1.7 09/04/19 11:10: ESR 27 H 09/04/19 11:10: C-Reactive Protein 117.0 H 09/04/19 12:30: Urine Color Yellow, Urine Appearance Clear, Urine pH 6.0, Ur Spe cific [place] >= 1.030, Urine Protein 1+, Urine Glucose (UA) Negative, Urine Ketones Negative, Urine Blood Negative, Urine Nitrate Negative, Urine Bilirubin Negative, Urine Urobilinogen 0.2, Ur Leukocyte Esterase Negative, Urine WBC 3-5, Ur Squamous Epith Cells Occasional, Hyaline Casts Occasional 09/04/19 13:05: Chlamy pneumoniae PCR Not detected, Adenovirus (PCR) Not det ected, B. pertussis DNA (PCR) Not detected, Coronavirus OC43 (PCR) Not detected, Coronavirus HKU1 (PCR) Not detected, Coronavirus 229E (PCR) Not detected, Coronavirus NL63 (PCR) Not detected, Human Metapneumovir PCR Not detected, Influenza A (H1) PCR Not detected, Influ A (H1N1/09) PCR Not detected, Influenza A (H3) PCR Not detected, Influenza Type A (PCR) Not detected, Influenza Type B (PCR) Not detected, M. pneumoniae (PCR) Not detected, Parainfluenza 1 (PCR) Not detected, Parainfluenza 2 (PCR) Not detected, Parainfluenza 3 (PCR) Not detected, Parainfluenza 4 (PCR) Not detected, RSV (PCR) Not detected, Entero/Rhino (PCR) Not detected 09/05/19 05:30: WBC 20.7 H* D, RBC 3.86 L, Hgb 11.7 L, Hct 34.9 L, MCV 90.3, MCH 30.2, MCHC 33.4, RDW 12.1, Plt Count 429 H D, MPV 7.6, Neut % (Auto) 80.8 H, Lymph % (Auto) 13.9, [place] % (Auto) 4.0, Eos % (Auto) 1.1, Baso % (Auto) 0.2, Neut # (Auto) 16.7 H, Lymph # (Auto) 2.9, [place] # (Auto) 0.8, Eos # (Auto) 0.2, Baso # (Auto) 0.0, Total Counted 100, Neutrophils % (Manual) 85 H, Band Neutrophils % 2.0, Lymphocytes % (Manual) 12, Monocytes % (Manual) 1 L, Toxic Granulation 1+, Platelet Estimate Normal, RBC Morphology Normal 09/05/19 05:30: Sodium 138, Potassium 3.6, Chloride 109 H, Carbon Dioxide 22, Anion Gap 10.6, BUN 6 L, Creatinine 0.50 L, Estimated Creat Clear 183, Estimated GFR 141, Est GFR ( Amer) 171 D, Glucose 112 H, Calcium 8.2 L I & O for Last 24 hours: Intake & Output 09/02/19 09/03/19 09/04/19 09/05/19 11:59 11:59 11:59 11:59 Intake Total 1999 5284 / 5284 Output Total 1600 / 1600 Balance 1999 3684 / 3684 Weight 314 lb 331 lb 2 oz Microbiology Reports for the Last 24 Hours: Microbiology 09/04/19 05:51 Urine,Clean Catch Urine Culture - Preliminary Narrative: Patient looks well this morning with good color. Lungs have diminished breath sounds in the right base with some very faint crackles. Heart has an irregular rate and rhythm. Abdomen is soft. Bojorquez catheter remains in place. Assessment and Plan (1) Pericarditis Current visit: Yes Status: Acute Category: Medical Code(s): I31.9 - Disease of pericardium, unspecified Patient was started on IV NSAIDs yesterday and she will transition to ibuprofen 800 mg 3 times per day along with colchicine 0.6 mg twice daily. IV fluids will be discontinued. Patient will remain on ekg monitor tech. Bojorquez catheter will be discontinued (2) Atrial fibrillation Current visit: Yes Status: Acute Qualifiers: Atrial fibrillation type: unspecified Qualified Code(s): I48.91 - Unspecified atrial fibrillation Category: Medical Code(s): I48.91 - Unspecified atrial fibrillation Resume metoprolol tartrate 50 mg twice daily (3) Leukocytosis Current visit: Yes Status: Acute Qualifiers: Leukocytosis type: unspecified Qualified Code(s): D72.829 - Elevated white blood cell count, unspecified Category: Medical Code(s): D72.829 - Elevated white blood cell count, unspecified Continue patient's Rocephin and vancomycin to cover possible bacteremia while awaiting blood cultures (4) Hypothyroidism Current visit: Yes Status: Acute Category: Medical Code(s): E03.9 - Hypothyroidism, unspecified
--- NOTE | 2019-09-05 13:51 | Pharmacy Consult Notes ---
- Pharmacy Consult Date: 09/05/19 Time: 13:50 Referring provider: DR. GRAYSON Reason for Consult:: VANCOMYCIN TROUGH LEVEL Allergies and ADEs:: Allergies Allergy/AdvReac Type Severity Reaction Status Date / Time No Known Allergies Allergy Unverified 06/25/17 14:44 Home Medications:: Home Medications Medication Instructions Recorded Confirmed Type Aspirin [Aspir 81] 81 mg PO DAILY 08/29/19 09/04/19 History Escitalopram Oxalate [Lexapro] 20 mg PO DAILY 08/29/19 09/04/19 History Esomeprazole Magnesium [Nexium] 40 mg PO DAILY 08/29/19 09/04/19 History Levothyroxine Sodium 125 mcg PO DAILY 08/29/19 09/04/19 History [Levothyroxine 125mcg (0.125mg) Tab] carvediloL [Carvedilol 6.25mg Tab] 6.25 mg PO BID 08/29/19 09/04/19 History Brompheniramine/Pseudoephed/Dm 5 ml PO Q6HP PRN 09/04/19 09/04/19 History [Nxghktudvq-Bkykyxcovkj-Ej Syr] Norethindrone 0.35 mg PO DAILY 09/04/19 09/04/19 History Ondansetron [Zofran 4mg ODT] 4 mg PO Q6HP PRN 09/04/19 09/04/19 History Height: 1.83 m Weight: 150.196 kg Laboratory Results:: Laboratory Results - last 24 hr 09/04/19 12:30: Urine Color Yellow, Urine Appearance Clear, Urine pH 6.0, Ur Specific [place] >= 1.030, Urine Protein 1+, Urine Glucose (UA) Negative, Urine Ketones Negative, Urine Blood Negative, Urine Nitrate Negative, Urine Bilirubin Negative, Urine Urobilinogen 0.2, Ur Leukocyte Esterase Negative, Urine WBC 3-5, Ur Squamous Epith Cells Occasional, Hyaline Casts Occasional 09/04/19 13:05: Chlamy pneumoniae PCR Not detected, Adenovirus (PCR) Not detected, B. pertussis DNA (PCR) Not detected, Coronavirus OC43 (PCR) Not detected, Coronavirus HKU1 (PCR) Not detected, Coronavirus 229E (PCR) Not detect ed, Coronavirus NL63 (PCR) Not detected, Human Metapneumovir PCR Not detected, Influenza A (H1) PCR Not detected, Influ A (H1N1/09) PCR Not detected, Influenza A (H3) PCR Not detected, Influenza Type A (PCR) Not detected, Influenza Type B (PCR) Not detected, M. pneumoniae (PCR) Not detected, Parainfluenza 1 (PCR) Not detected, Parainfluenza 2 (PCR) Not detected, Parainfluenza 3 (PCR) Not detected, Parainfluenza 4 (PCR) Not detected, RSV (PCR) Not detected, Entero/Rhino (PCR) Not detected 09/05/19 05:30: WBC 20.7 H* D, RBC 3.86 L, Hgb 11.7 L, Hct 34.9 L, MCV 90.3, MCH 30.2, MCHC 33.4, RDW 12.1, Plt Count 429 H D, MPV 7.6, Neut % (Auto) 80.8 H, Lymph % (Auto) 13.9, [place] % (Auto) 4.0, Eos % (Auto) 1.1, Baso % (Auto) 0.2, Neut # (Auto) 16.7 H, Lymph # (Auto) 2.9, [place] # (Auto) 0.8, Eos # (Auto) 0.2, Baso # (Auto) 0.0, Total Counted 100, Neutrophils % (Manual) 85 H, Band Neutrophils % 2.0, Lymphocytes % (Manual) 12, Monocytes % (Manual) 1 L, Toxic Granulation 1+, Platelet Estimate Normal, RBC Morphology Normal 09/05/19 05:30: Sodium 138, Potassium 3.6, Chloride 109 H, Carbon Dioxide 22, Anion Gap 10.6, BUN 6 L, Creatinine 0.50 L, Estimated Creat Clear 183, Estimated GFR 141, Est GFR ( Amer) 171 D, Glucose 112 H, Calcium 8.2 L 09/05/19 12:30: Vancomycin Trough 13.5 H Medical History: Reports:: Gastroesophageal Reflux Disease(GERD), Hypertension, Palpitations Assessment and Plan (1) Pericarditis Current visit: Yes Status: Acute Category: Medical Code(s): I31.9 - Disease of pericardium, unspecified (2) Atrial fibrillation Current visit: Yes Status: Acute Qualifiers: Atrial fibrillation type: unspecified Qualified Code(s): I48.91 - Unspecified atrial fibrillation Category: Medical Code(s): I48.91 - Unspecified atrial fibrillation (3) Leukocytosis Current visit: Yes Status: Acute Qualifiers: Leukocytosis type: unspecified Qualified Code(s): D72.829 - Elevated white blood cell count, unspecified Category: Medical Code(s): D72.829 - Elevated white blood cell count, unspecified (4) Hypothyroidism Current visit: Yes Status: Acute Category: Medical Code(s): E03.9 - Hypothyroidism, unspecified - Assessment and plan all Dx Assessment and Plan for all problems:: BASED ON PATIENT FACTORS, RECOMMEND CONTINUING VANCOMYCIN 2500 MG IV Q8H. PHARMACY WILL CONTINUE TO MONITOR DAILY AND ADJUST APPROPRIATE.
--- NOTE | 2019-09-05 19:11 | Electrocardiograph Report ---
APPROVED REPORT Exam: Resting ECG HR:82 bpm ECG Measurements Heart Rate 82 AXES [place] 182 P 45 QRSd 88 QRS 51 QT 388 T65 QTc 453 <Conclusion> Normal sinus rhythm Nonspecific ST-T wave abnormalities Abnormal ECG Electronically signed by : Franklin Wiley, 09/05/2019 19:10:27
--- NOTE | 2019-09-05 19:12 | Electrocardiograph Report ---
APPROVED REPORT Exam: Resting ECG HR:80 bpm ECG Measurements Heart Rate [address] 174 P 39 QRSd 90 QRS 49 QT 372 T67 QTc 429 <Conclusion> Normal sinus rhythm Nonspecific ST-T wave abnormalities Incomplete RBBB Abnormal ECG Electronically signed by : Franklin Wiley, 09/05/2019 19:11:40
--- NOTE | 2019-09-05 19:13 | Electrocardiograph Report ---
APPROVED REPORT Exam: Resting ECG HR:153 bpm ECG Measurements Heart Rate 153 AXES QRSd 82 QRS 59 QT 256 T215 QTc 408 <Conclusion> Atrial fibrillation with rapid ventricular response with premature ventricular or aberrantly conducted complexes ST & T wave abnormality, consider inferolateral ischemia or digitalis effect Abnormal ECG Electronically signed by : Franklin Wiley, 09/05/2019 19:13:00
[2019-09-06 05:53] LABS: Basophils % 0.2 % (0.1-2.0); Eosinophils # 0.3 K/mm3 (0.0-0.4); Eosinophils % 1.7 % (0.1-12.0); Hematocrit 37.4 % (37.0-47.0); Hemoglobin 12.6 g/dL (12.2-16.2); Lymphocytes # 2.6 K/mm3 (0.7-4.5); Lymphocytes % 13.7 % (10-50); Mean Corpuscular HGB Conc 33.8 g/dL (31.8-35.4); Mean Corpuscular Volume 91.3 fl (81-99); Mean Platelet Volume 7.9 fl (7.4-10.4); Monocytes # 0.9 K/mm3 (0.1-1.0); Monocytes % 4.4 % (1.7-9.3); Neutrophils # 15.3 K/mm3 (1.8-7.8); Platelet Count 466 K/mm3 (142-424); Red Blood Count 4.09 M/mm3 (4.20-5.40); Red Cell Distribution Width 12.4 % (11.5-17.5); White Blood Count 19.2 K/mm3 (4.8-10.8)
[2019-09-06 06:10] LABS: Anion Gap 10.6 mEq/L (5-15)
[2019-09-06 06:11] LABS: Calcium 8.8 mg/dl (8.4-10.2)
[2019-09-06 06:15] LABS: Lymphocytes % 18 % (10-50); Neutrophils % 76 % (42-76); RBC Morphology Normal; Total Cells Counted 100
--- NOTE | 2019-09-06 08:36 | Progress Note ---
Internal Medicine - PN: Subj *Date: 09/06/19 *Time: 08:33 Interval history: Patient is in no distress this morning. Yesterday evening she transition back to atrial fibrillation with rapid ventricular response. She was given her evening dose of metoprolol a few hours early which helped until around 3 AM this morning at which point the patient went back into atrial fibrillation. She was given IV digoxin 0.125 mg and additional metoprolol 75 mg early this morning and has subsequently converted back to a sinus rhythm. Patient is also had some pauses. Weaned off Cardizem. She denies chest pain. She has endorsed some indigestion yesterday evening Exam Vital signs and Labs for Last 24 Hours: Temp Pulse Resp BP Pulse Ox 98.3 F 138 H 18 136/63 92 L 09/06/19 08:00 09/06/19 08:00 09/06/19 08:00 09/06/19 08:00 09/06/19 08:00 Laboratory Results - last 24 hr 09/04/19 09:33: POC Glucose 126 H 09/05/19 12:30: Vancomycin Trough 13.5 H 09/06/19 05:05: WBC 19.2 H, RBC 4.09 L, Hgb 12.6, Hct 37.4, MCV 91.3, MCH 30.9, MCHC 33.8, RDW 12.4, Plt Count 466 H, MPV 7.9, Neut % (Auto) 80.0, Lymph % (Auto) 13.7, [place] % (Auto) 4.4, Eos % (Auto) 1.7, Baso % (Auto) 0.2, Neut # (Auto) 15.3 H, Lymph # (Auto) 2.6, [place] # (Auto) 0.9, Eos # (Auto) 0.3, Baso # (Auto) 0.0, Total Counted 100, Neutrophils % (Manual) 76, Band Neutrophils % 6 .0, Lymphocytes % (Manual) 18, Platelet Estimate Slight increase, RBC Morphology Normal 09/06/19 05:05: Sodium 138, Potassium 3.6, Chloride 104, Carbon Dioxide 27 D, Anion Gap 10.6, BUN 6 L, Creatinine 0.50 L, Estimated Creat Clear 183, Estimated GFR 141, Est GFR ( Amer) 171, Glucose 96, Calcium 8.8, Magnesium 1.7 I & O for Last 24 hours: Intake & Output 09/03/19 09/04/19 09/05/19 09/06/19 11:59 11:59 11:59 11:59 Intake Total 1999 5764 / 5764 1750 / 1750 Output Total 2800 / 2800 2049 Balance 1999 2964 / 2964 -300 / -300 Weight 314 lb 331 lb 2 oz 327 lb 6 oz Microbiology Reports for the Last 24 Hours: Microbiology 09/04/19 05:51 Urine,Clean Catch Urine Culture - Preliminary 09/04/19 04:35 Blood Blood Culture - Preliminary NO GROWTH AFTER 48 HOURS 09/04/19 04:35 Blood Blood Culture - Preliminary NO GROWTH AFTER 48 HOURS Narrative: Patient is in no distress and appears comfortable. Lungs are clear. Heart has a regular rate and rhythm at this time. Lungs are clear with slight diminished sounds in the right base. Abdomen is soft and nontender Assessment and Plan (1) Pericarditis Current visit: Yes Status: Acute Category: Medical Code(s): I31.9 - Disease of pericardium, unspecified (2) Atrial fibrillation Current visit: Yes Status: Acute Qualifiers: Atrial fibrillation type: unspecified Qualified Code(s): I48.91 - Unspecified atrial fibrillation Category: Medical Code(s): I48.91 - Unspecified atrial fibrillation (3) Leukocytosis Current visit: Yes Status: Acute Qualifiers: Leukocytosis type: unspecified Qualified Code(s): D72.829 - Elevated white blood cell count, unspecified Category: Medical Code(s): D72.829 - Elevated white blood cell count, unspecified (4) Hypothyroidism Current visit: Yes Status: Acute Category: Medical Code(s): E03.9 - Hypothyroidism, unspecified - Assessment and plan all Dx Assessment and Plan for all problems:: 1. Continue ibuprofen and colchicine for pericarditis 2. Continue metoprolol tartrate 75 mg twice daily for her atrial fibrillation and she will be given an oral dose of digoxin should she transition back to atrial fibrillation 3. Antibiotics will be discontinued as blood and urine cultures are negative
[2019-09-07 06:22] LABS: Basophils % 0.2 % (0.1-2.0); Eosinophils # 0.3 K/mm3 (0.0-0.4); Eosinophils % 1.7 % (0.1-12.0); Hematocrit 33.5 % (37.0-47.0); Lymphocytes # 2.1 K/mm3 (0.7-4.5); Lymphocytes % 13.3 % (10-50); Mean Corpuscular HGB Conc 32.8 g/dL (31.8-35.4); Mean Corpuscular Volume 92.6 fl (81-99); Mean Platelet Volume 7.6 fl (7.4-10.4); Monocytes # 0.8 K/mm3 (0.1-1.0); Monocytes % 5.2 % (1.7-9.3); Neutrophils # 12.4 K/mm3 (1.8-7.8); Neutrophils % 79.7 % (37.0-80.0); Platelet Count 415 K/mm3 (142-424); Red Blood Count 3.61 M/mm3 (4.20-5.40); Red Cell Distribution Width 12.3 % (11.5-17.5); White Blood Count 15.5 K/mm3 (4.8-10.8)
[2019-09-07 06:30] LABS: Bilirubin,Unconjugated 0.5 mg/dL (0.0-1.1)
[2019-09-07 06:31] LABS: Albumin Level 3.3 g/dl (3.5-5.0); Bilirubin,Indirect 0.3 mg/dL (0.0-0.9); Bilirubin,Total 0.3 mg/dl (0.2-1.3); Calcium 8.5 mg/dl (8.4-10.2); Total Protein,Serum 6.2 g/dl (6.3-8.2)
--- NOTE | 2019-09-07 07:47 | Progress Note ---
Internal Medicine - PN: Subj *Date: 09/07/19 *Time: 07:45 Interval history: Patient has no complaints this morning. She did have an episode of epigastric and right upper quadrant pain that radiated into the back yesterday. She was placed on a low-fat diet which seemed to prevent recurrence of this pain. She is scheduled for gallbladder ultrasound this morning. She has remained in a sinus rhythm for the last 24 hours and continues on metoprolol 75 mg twice daily. Exam Vital signs and Labs for Last 24 Hours: Temp Pulse Resp BP Pulse Ox 97.8 F 67 19 144/75 H 95 09/07/19 04:00 09/07/19 04:00 09/07/19 04:00 09/07/19 04:00 09/07/19 04:00 Laboratory Results - last 24 hr 09/07/19 05:30: WBC 15.5 H, RBC 3.61 L, Hgb 11.0 L, Hct 33.5 L, MCV 92.6, MCH 30.4, MCHC 32.8, RDW 12.3, Plt Count 415, MPV 7.6, Neut % (Auto) 79.7, Lymph % (Auto) 13.3, [place] % (Auto) 5.2, Eos % (Auto) 1.7, Baso % (Auto) 0.2, Neut # (Aut o) 12.4 H, Lymph # (Auto) 2.1, [place] # (Auto) 0.8, Eos # (Auto) 0.3, Baso # (Auto) 0.0 09/07/19 05:30: Sodium 139, Potassium 3.0 L, Chloride 103, Carbon Dioxide 30, Anion Gap 9.0, BUN 5 L, Creatinine 0.60, Estimated Creat Clear 152, Estimated GFR 114, Est GFR ( Amer) 138, Glucose 104 H, Calcium 8.5, Magnesium 1.8, Total Bilirubin 0.3, Direct Bilirubin 0.0, Conjugated Bilirubin 0.0, Indirect Bilirubin 0.3, Unconjugated Bilirubin 0.5, AST 27, ALT 39, Alkaline Phosphatase 95, Total Protein 6.2 L, Albumin 3.3 L I & O for Last 24 hours: Intake & Output 09/04/19 09/05/19 09/06/19 09/07/19 11:59 11:59 11:59 11:59 Intake Total 1999 5764 / 5764 1989 768 / 768 Output Total 2800 / 2800 2250 / 2250 901 / 901 Balance 1999 2964 / 2964 -260 / -260 -133 / -133 Weight 314 lb 331 lb 2 oz 327 lb 6 oz 328 lb Microbiology Reports for the Last 24 Hours: Microbiology 09/04/19 05:51 Urine,Clean Catch Urine Culture - Final Multiple organisms, suggests contamination. 09/04/19 04:35 Blood Blood Culture - Preliminary NO GROWTH AFTER 48 HOURS 09/04/19 04:35 Blood Blood Culture - Preliminary NO GROWTH AFTER 48 HOURS Narrative: Patient is awake and alert this morning. Lungs are clear with some atelectatic sounds at the bases. Heart has a regular rate and rhythm. Abdomen is soft with mild right upper quadrant tenderness to palpation this morning but no rebound or guarding. Bowel sounds are present. Assessment and Plan (1) Pericarditis Current visit: Yes Status: Acute Category: Medical Code(s): I31.9 - Disease of pericardium, unspecified Continue NSAIDs and colchicine (2) Atrial fibrillation Current visit: Yes Status: Acute Qualifiers: Atrial fibrillation type: unspecified Qualified Code(s): I48.91 - Unspecified atrial fibrillation Category: Medical Code(s): I48.91 - Unspecified atrial fibrillation Continue metoprolol 75 twice daily (3) Leukocytosis Current visit: Yes Status: Acute Qualifiers: Leukocytosis type: unspecified Qualified Code(s): D72.829 - Elevated white blood cell count, unspecified Category: Medical Code(s): D72.829 - Elevated white blood cell count, unspecified Improving. Blood and urine cultures have been negative (4) Hypothyroidism Current visit: Yes Status: Acute Category: Medical Code(s): E03.9 - Hypothyroidism, unspecified (5) Right upper quadrant abdominal pain Current visit: Yes Status: Acute Category: Medical Code(s): R10.11 - Right upper quadrant pain Abdominal ultrasound today.
--- NOTE | 2019-09-07 08:03 | Electrocardiograph Report ---
APPROVED REPORT Exam: Resting ECG HR:172 bpm ECG Measurements Heart Rate 172 AXES QRSd 84 QRS 60 QT 264 T-75 QTc 446 <Conclusion> Atrial fibrillation with rapid ventricular response with premature ventricular or aberrantly conducted complexes ST & T wave abnormality, consider inferior ischemia or digitalis effect Abnormal ECG Electronically signed by : Arian Rosas, 09/07/2019 08:02:45
--- NOTE | 2019-09-07 08:57 | Progress Note ---
Subjective Date: 09/07/19 Time: 08:53 Principal diagnosis: A. fib Interval history: 34 yo WF sitting in bed in NAD. NSR for 24 hrs now. No chest pain. Some RUQ pain with workup in progress. WBC improved. Exam Vital signs and Labs for Last 24 Hours: Temp Pulse Resp BP Pulse Ox 97.8 F 67 19 144/75 H 95 09/07/19 04:00 09/07/19 04:00 09/07/19 04:00 09/07/19 04:00 09/07/19 04:00 Laboratory Results - last 24 hr 09/07/19 05:30: WBC 15.5 H, RBC 3.61 L, Hgb 11.0 L, Hct 33.5 L, MCV 92.6, MCH 30.4, MCHC 32.8, RDW 12.3, Plt Count 415, MPV 7.6, Neut % (Auto) 79.7, Lymph % (Auto) 13.3, [place] % (Auto) 5.2, Eos % (Auto) 1.7, Baso % (Auto) 0.2, Neut # (Auto) 12.4 H, Lymph # (Auto) 2.1, [place] # (Auto) 0.8, Eos # (Auto) 0.3, Baso # (Auto) 0.0 09/07/19 05:30: Sodium 139, Potassium 3.0 L, Chloride 103, Carbon Dioxide 30, Anion Gap 9.0, BUN 5 L, Creatinine 0.60, Estimated Creat Clear 152, Estimated GFR 114, Est GFR ( Amer) 138, Glucose 104 H, Calcium 8.5, Magnesium 1.8, Total Bilirubin 0.3, Direct Bilirubin 0.0, Conjugated Bilirubin 0.0, Indirect Bilirubin 0.3, Unconjugated Bilirubin 0.5, AST 27, ALT 39, Alkaline Phosphatase 95, Total Protein 6.2 L, Albumin 3.3 L I & O for Last 24 hours: Intake & Output 09/04/19 09/05/19 09/06/19 09/07/19 11:59 11:59 11:59 11:59 Intake Total 1999 5764 / 5764 1989 778 / 778 Output Total 2800 / 2800 2250 / 2250 901 / 901 Balance 1999 2964 / 2964 -260 / -260 -123 / -123 Weight 314 lb 331 lb 2 oz 327 lb 6 oz 328 lb Microbiology Reports for the Last 24 Hours: Microbiology 09/04/19 05:51 Urine,Clean Catch Urine Culture - Final Multiple organisms, suggests contamination. 09/04/19 04:35 Blood Blood Culture - Preliminary NO GROWTH AFTER 48 HOURS 09/04/19 04:35 Blood Blood Culture - Preliminary NO GROWTH AFTER 48 HOURS - *Routine HEENT Exam Head: Present: normocephalic Eye: Present: EOMI, PERRL ENT: Present: mucous membranes moist - *Routine Respiratory Exam Present: CTA bilaterally. Absent: accessory muscle use, rales, rhonchi, wheezes - *Routine Cardiovascular Exam Present: RRR. Absent: murmur, gallop, rubs - *Routine Extremities Exam Absent: edema, calf tenderness - *Routine Neurological Exam Present: alert, oriented X3, moving all extremities Progress Note: A&P (1) Pericarditis Status: Acute Current Visit: Yes (2) Atrial fibrillation Status: Acute Current Visit: Yes (3) Leukocytosis Status: Acute Current Visit: Yes (4) Hypothyroidism Status: Acute Current Visit: Yes (5) Right upper quadrant abdominal pain Status: Acute Current Visit: Yes Assessment and Plan for All Diagnoses:: 1. Continue metoprolol 75 mg BID and ASA 81 mg daily. A. fib likely reactionary to underlying infectious process (possibly GB disease with workup in progress). 2. Off work for at least one week. Follow up in our office in one week 3. Continue colchicine for pericarditis/pericardial effusion. Will get follow up limited echo in 2-4 wks. 4. OK for discharge home from Cardiology standpoint.
[2019-09-07 09:15] LABS: Lymphocytes % 12 % (10-50); Monocytes % 7 % (2-9); Neutrophils % 81 % (42-76); RBC Morphology Normal; Total Cells Counted 100
--- NOTE | 2019-09-07 11:58 | Electrocardiograph Report ---
APPROVED REPORT Exam: Resting ECG HR:136 bpm ECG Measurements Heart Rate 136 AXES QRSd 82 QRS 75 QT 306 T215 QTc 460 <Conclusion> Atrial fibrillation with rapid ventricular response ST & T wave abnormality, consider inferolateral ischemia or digitalis effect Abnormal ECG Electronically signed by : Franklin Wiley, 09/07/2019 11:57:43
--- NOTE | 2019-09-08 07:04 | Discharge Summary ---
General - General Admission date:: 09/04/19 Discharge date: 09/07/19 HPI HPI: 34-year-old female with hypothyroidism presented to the emergency department from home after persistent fluttering sensation in the chest that radiated through to the back. Patient admits she has had occasional fluttering sensations in the past but over the last week had had a few more episodes than usual. She did not have chest pain and felt maybe like she could not get a deep breath. Otherwise she denies changes in health and admits she has not been ill. She presented to the ER where she was found to be in atrial fibrillation. Patient was started on a Cardizem drip and admitted to the stepdown unit. Since admission her heart rate is generally been in the 130s and irregular although will have brief periods where it appears as if she is trying to convert back to sinus rhythm. Patient once again denies chest pain, significant dyspnea. She has been taking her medicines as prescribed. Patient's TSH was elevated as was her T4 Hospital Course Hospital Course: Patient was admitted on a Cardizem drip and on the morning of September 04 was given oral metoprolol as well as an IV dose of digoxin 250 mcg. Shortly after administration of these medicines in combination with the Cardizem drip patient became hypotensive and bradycardic. Patient was aggressively resuscitated with IV fluids as well as started on Ike-Synephrine to maintain appropriate blood pressure. Patient had systemic inflammatory response syndrome but no definite source of infection. Blood cultures had been drawn in the emergency department upon admission. Urine was obtained and cultured. Chest x-ray was ordered. Within 6 hours of patient becoming hypotensive and bradycardic she had stabilized with a pulse rate in the 60s that had converted to sinus rhythm and normal blood pressures. Ike-Synephrine was weaned. Urine output was monitored. Patient was started on Rocephin and vancomycin to cover possible bacteremia. Echocardiogram showed a mild to moderate sized pericardial effusion consistent with acute pericarditis which was suspected to be due to her recent viral respiratory infection. Patient was started on ibuprofen and colchicine for acute pericarditis. Decision was made to continue the patient on beta-blockers for rate control. As the day progressed on August patient began having frequent PACs and brief episodes of converting back to atrial fibrillation. Ultimately this required administration of her beta-blockers sooner than scheduled and on September 05 beta- blockers were increased to 75 mg twice daily. Calcium channel blockers were avoided as was digoxin. Increasing dose of beta-blockade seem to improve cardiac stability. Patient remained in a sinus rhythm for full 24 hours prior to discharge. Cardiology was consulted during hospitalization and aided with recommendations as well as interpretation of diagnostic tests. 1 day prior to discharge patient complained of right upper quadrant abdominal pain after eating breakfast which included covarrubias. On September patient underwent gallbladder ultrasound which revealed a contracted gallbladder. Patient will have HIDA scan in the near future. On September 06 patient was discharged home in stable condition. She will follow-up my office later in the week. She will be off work for the remainder of this week and ahead of it has already been discussed with the patient the decision to return to work will be made at the end of the week Objective Vital signs: Temp Pulse Resp BP Pulse Ox 97.9 F 67 18 128/76 94 L 09/07/19 16:00 09/07/19 16:00 09/07/19 16:00 09/07/19 16:00 09/07/19 16:00 Results Labs on day of discharge: Labs from last 24 hours 09/07/19 05:30 Total Counted 100 Neutrophils % (Manual) 81 H Lymphocytes % (Manual) 12 Monocytes % (Manual) 7 Platelet Estimate Normal RBC Morphology Normal Preliminary micro results at discharge 09/04/19 04:35 Blood Culture - Preliminary Blood NO GROWTH AFTER 48 HOURS 09/04/19 04:35 Blood Culture - Preliminary Blood NO GROWTH AFTER 48 HOURS DS: Diagnosis - Discharge Diagnosis (1) Pericarditis Status: Acute (2) Atrial fibrillation Status: Acute (3) Leukocytosis Status: Acute (4) Hypothyroidism Status: Acute (5) Right upper quadrant abdominal pain Status: Acute Discharge Plan - Patient Discharge Instructions ACTIVITY: Continue current activity DIET: continue same diet Patient Instructions: Sinusitis, Hypothyroidism, Atrial Fibrillation, Pericarditis -- Adult, DI for Sinusitis, DI for Pericarditis, DI for Atrial Fibrillation, DI for Hypothyroidism, DI for Leukocytosis - Follow up Plan Follow up with: Arian Rao MD [Primary Care Provider] - 09/11/19 9:30 am Disposition: Home, Self-Usp Medications: Home Medications Medication Instructions Recorded Confirmed Type Aspirin [Aspir 81] 81 mg PO DAILY 08/29/19 09/04/19 History Escitalopram Oxalate [Lexapro] 20 mg PO DAILY 08/29/19 09/04/19 History Esomeprazole Magnesium [Nexium] 40 mg PO DAILY 08/29/19 09/04/19 History Levothyroxine Sodium 125 mcg PO DAILY 08/29/19 09/04/19 History [Levothyroxine 125mcg (0.125mg) Tab] Norethindrone 0.35 mg PO DAILY 09/04/19 09/04/19 History Ondansetron [Zofran 4mg ODT] 4 mg PO Q6HP PRN 09/04/19 09/04/19 History Colchicine [Colcrys 0.6mg tablet] 0.6 mg PO BID #60 tab 09/07/19 Rx Furosemide [Furosemide 20mg Tab] 20 mg PO DAILY #10 tab 09/07/19 Rx Ibuprofen [Ibuprofen 800mg 800 mg PO Q8HP PRN #90 tab 09/07/19 Rx Tablet] Metoprolol Tartrate [Lopressor 75 mg PO BID #90 tab 09/07/19 Rx 50mg tablet] Prescriptions/Medication Reconciliation: New Ibuprofen [Ibuprofen 800mg Tablet] 800 mg PO Q8HP PRN #90 tab PRN Reason: Moderate Pain Colchicine [Colcrys 0.6mg tablet] 0.6 mg PO BID #60 tab Furosemide [Furosemide 20mg Tab] 20 mg PO DAILY #10 tab Metoprolol Tartrate [Lopressor 50mg tablet] 75 mg PO BID #90 tab Continued Esomeprazole Magnesium [Nexium] 40 mg PO DAILY Aspirin [Aspir 81] 81 mg PO DAILY Ondansetron [Zofran 4mg ODT] 4 mg PO Q6HP PRN PRN Reason: Nausea Escitalopram Oxalate [Lexapro] 20 mg PO DAILY Levothyroxine Sodium [Levothyroxine 125mcg (0.125mg) Tab] 125 mcg PO DAILY Norethindrone 0.35 mg PO DAILY Discontinued Brompheniramine/Pseudoephed/Dm [Fpypojosls-Cmwpmryrkjv-Nv Syr] 5 ml PO Q6HP PRN PRN Reason: Cough carvediloL [Carvedilol 6.25mg Tab] 6.25 mg PO BID - Problem Reconciliation Problems Reviewed?: Yes
== END 2019-09-07 17:32 | disposition home or self-care (01) | DRG 309 ==
LOC: ER 03:53 → ICU 05:53 → 2ND 18:30
PROVIDERS: ADMIT Family Medicine; ATTEND Family Medicine
CPT/HCPCS: 36415; 71010; 71045; 71275; 76700; 80048; 80076; 80202; 81001; 82150; 82962; 83605; 83690; 83735; 84436; 84443; 84484; 85007; 85025; 85651; 86140; 87040; 87086; 87275; 87276; 87486; 87581; 87633; 87798; 93005; 93306; 94761; 96365; 96366; 96367; 96375; 99285; J2405; J3370; Q9967

== ENCOUNTER → 2019-09-11 10:18 | Outpatient (CLI) | payer OTHER, SELFPAY ==
[2019-09-11 11:17] LABS: Chloride 101 mmol/L (98-107); Potassium 3.5 mmoL/L (3.5-5.1); Sodium 140 mmol/L (136-145)
[2019-09-11 11:20] LABS: Anion Gap 15.5 mEq/L (5-15); Blood Urea Nitrogen 5 mg/dl (7-17); Calcium 8.9 mg/dl (8.4-10.2); Carbon Dioxide 27 mmol/L (22.0-30.0); Estimated Glomerular Filt Rate 114 ml/min (>60); GFR (African American) 138 ML/MIN (>60); Glucose 113 mg/dl (74-100)
[2019-09-11 11:26] LABS: C-Reactive Protein 129.7 mg/L (0-4)
[2019-09-11 11:51] LABS: Thyroid Stimulating Hormone 4.65 uIU/mL (0.465-4.68)
== END ==
PROVIDERS: Visit Provider Family Medicine
DX: E03.9 Hypothyroidism, unspecified (principal); I30.1 Infective pericarditis
CPT/HCPCS: 36415; 80048; 84443; 86140

== ENCOUNTER → 2019-09-18 09:24 | Outpatient (CLI) | payer OTHER, SELFPAY | PROVIDERS: PCP Family Medicine; Visit Provider Physician Assistant | DX: I48.91 Unspecified atrial fibrillation (principal) | CPT/HCPCS: 93308 ==

== ENCOUNTER → 2019-09-21 12:20 | Outpatient (CLI) | payer OTHER, SELFPAY ==
--- NOTE | 2019-09-21 12:22 | CT_ITS ---
PROCEDURE: CT CHEST WO/W CON CLINCAL INDICATION: cp/cough/fever Cough and fever COMPARISON: XR CHEST PORTABLE from 09/04/2019 CT ANGIO CHEST from 09/04/2019 TECHNIQUE: IV Contrast: 75ml Optiray 350 Axial images obtained with sagittal and coronal reformats. All CT scans at the facility use one or more dose reduction, viz: automated exposure control, ma/kV adjustment per patient size (including targeted exams where dose is matched to indication, i.e. head), or iterative reconstruction technique. FINDINGS: HEART AND MEDIASTINAL STRUCTURES: Pericardium remains thickened measuring to 1.1 cm previously measuring up to 2.6 cm. Normal heart size. There is some reflux of contrast into the inferior vena cava and hepatic veins. No evidence pulmonary embolus. There are few small mediastinal lymph nodes which are not significantly changed. LUNGS AND PLEURAL SPACES: There are small bilateral pleural effusions which are slightly larger than when compared to the previous exam. There are mild atelectatic changes in the right lung base posteriorly and moderate atelectatic changes in the left lung base posteriorly with volume loss in the left lower lobe. There remains an 11 mm noncalcified nodule within the lingula. This may contain a tiny central area of calcification. BONY STRUCTURES: There are degenerative changes in the thoracic spine UPPER ABDOMEN: There are few small nodes in the epigastric region and periportal area ADDITIONAL FINDINGS: No other significant abnormalities. IMPRESSION: 1. Pericardial effusion once again noted but it appears decreased in volume. 2. Bilateral pleural effusions are slightly larger with slight increase in the left lower lobe atelectasis along with some mild right basilar atelectasis. 3. No change in the 11 mm nodule of the lingula. Consider nonemergent PET-CT for further evaluation. If that is not performed then, would at least suggest a [address] follow-up without and with contrast Dictated by: Alfredo Rossi MD 09/21/2019 13:20 Electronically signed by Alfredo Rossi MD in [facility] 09/21/2019 13:20
[2019-09-21 13:40] LABS: Adenovirus,PCR Not Detected (NotDetected); Bordetella Pertussis Not Detected (NotDetected); Chlamydophila Pneumoniae, PCR Not Detected (NotDetected); Coronavirus 229E Not Detected (NotDetected); Coronavirus NL63 Not Detected (NotDetected); Coronavirus OC43 Not Detected (NotDetected); Coronovirus HKU1,PCR Not Detected (NotDetected); Human Metapneumovirus Not Detected (NotDetected); Influenza A, PCR Not Detected (NotDetected); Influenza AH1, 2009 Not Detected (NotDetected); Influenza AH1, PCR Not Detected (NotDetected); Influenza AH3,PCR Not Detected (NotDetected); Influenza B, PCR Not Detected (NotDetected); Mycoplasma Pneumoniae, PCR Not Detected (NotDetected); Parainfluenza 1, PCR Not Detected (NotDetected); Parainfluenza 2, PCR Not Detected (NotDetected); Parainfluenza 3, PCR Not Detected (NotDetected); Parainfluenza 4, PCR Not Detected (NotDetected); Respiratory Syncytial Virus Not Detected (NotDetected); Rhinovirus/Enterovirus Not Detected (NotDetected)
== END ==
PROVIDERS: PCP Family Medicine; Visit Provider Physician Assistant
DX: R50.9 Fever, unspecified (principal); R05 Cough; I31.9 Disease of pericardium, unspecified; I48.91 Unspecified atrial fibrillation
CPT/HCPCS: 71270; 87486; 87581; 87633; 87798; Q9967

== ENCOUNTER → 2019-09-22 12:35 | Outpatient (CLI) | payer OTHER, SELFPAY ==
[2019-09-22 13:07] LABS: Basophils # 0.1 K/mm3 (0-0.2); Basophils % 0.4 % (0.1-2.0); Eosinophils # 0.3 K/mm3 (0.0-0.4); Eosinophils % 2.8 % (0.1-12.0); Hematocrit 34.2 % (37.0-47.0); Hemoglobin 11.2 g/dL (12.2-16.2); Lymphocytes # 1.6 K/mm3 (0.7-4.5); Lymphocytes % 14.9 % (10-50); Mean Corpuscular HGB Conc 32.8 g/dL (31.8-35.4); Mean Corpuscular Hemoglobin 29.3 pg (27.0-31.2); Mean Corpuscular Volume 89.4 fl (81-99); Monocytes # 0.6 K/mm3 (0.1-1.0); Monocytes % 5.4 % (1.7-9.3); Neutrophils # 8.1 K/mm3 (1.8-7.8); Neutrophils % 76.4 % (37.0-80.0); Platelet Count 698 K/mm3 (142-424); Red Blood Count 3.83 M/mm3 (4.20-5.40); Red Cell Distribution Width 12.9 % (11.5-17.5); White Blood Count 10.6 K/mm3 (4.8-10.8)
[2019-09-22 13:31] LABS: Anion Gap 13.6 mEq/L (5-15); Blood Urea Nitrogen 8 mg/dl (7-17); Calcium 9.4 mg/dl (8.4-10.2); Carbon Dioxide 28 mmol/L (22.0-30.0); Chloride 101 mmol/L (98-107); Estimated Glomerular Filt Rate 114 ml/min (>60); GFR (African American) 138 ML/MIN (>60); Glucose 115 mg/dl (74-100); Potassium 4.6 mmoL/L (3.5-5.1); Sodium 138 mmol/L (136-145)
[2019-09-22 13:36] LABS: C-Reactive Protein 154.9 mg/L (0-4)
== END ==
PROVIDERS: Visit Provider Family Medicine
DX: I30.1 Infective pericarditis (principal); R06.02 Shortness of breath
CPT/HCPCS: 36415; 80048; 85025; 86140

== ENCOUNTER 2019-12-22 11:51 | Outpatient (CLI) | payer OTHER, SELFPAY | END 2019-12-22 12:15 | disposition home or self-care (01) | LOC: OUTP 11:52 | PROVIDERS: PCP Internal Medicine Adolescent Medicine; Visit Provider Internal Medicine Adolescent Medicine | DX: R06.09 Other forms of dyspnea (principal) | CPT/HCPCS: 96372 ==

== ENCOUNTER → 2020-01-15 16:49 | Outpatient (CLI) | payer OTHER, SELFPAY ==
[2020-01-15 17:24] LABS: Chloride 104 mmol/L (98-107)
[2020-01-15 17:25] LABS: Potassium 4.3 mmoL/L (3.5-5.1); Sodium 139 mmol/L (136-145)
[2020-01-15 17:27] LABS: Anion Gap 11.3 mEq/L (5-15); Blood Urea Nitrogen 13 mg/dl (7-17); Carbon Dioxide 28 mmol/L (22.0-30.0); Estimated Glomerular Filt Rate 96 ml/min (>60); GFR (African American) 116 ML/MIN (>60)
[2020-01-15 17:28] LABS: Calcium 9.4 mg/dl (8.4-10.2); Glucose 95 mg/dl (74-100)
[2020-01-15 17:34] LABS: C-Reactive Protein 6.6 mg/L (0-4)
[2020-01-15 17:37] LABS: Coronavirus 19 IgG Antibody Negative (Negative); Coronavirus 19 IgM Antibody Negative (Negative)
[2020-01-15 17:59] LABS: Thyroid Stimulating Hormone 3.42 uIU/mL (0.465-4.68)
== END ==
PROVIDERS: Visit Provider Family Medicine
DX: E03.9 Hypothyroidism, unspecified (principal); I10 Essential (primary) hypertension; R79.82 Elevated C-reactive protein (CRP); Z86.79 Personal history of other diseases of the circulatory system; Z03.818 Encounter for observation for suspected exposure to other biological agents ruled out
CPT/HCPCS: 36415; 80048; 80053; 84443; 86140; 86328

== ENCOUNTER → 2020-02-16 10:26 | Outpatient (CLI) | payer OTHER, SELFPAY ==
--- NOTE | 2020-02-16 10:31 | CT_ITS ---
PROCEDURE: CT CHEST WO/W CON CLINCAL INDICATION: LT LUNG NODULE COMPARISON: CT CT CHEST WO/W CON from 09/21/2019 TECHNIQUE: IV Contrast: 75ml Optiray 350 Axial images obtained with sagittal and coronal reformats. All CT scans at the facility use one or more dose reduction, viz: automated exposure control, ma/kV adjustment per patient size (including targeted exams where dose is matched to indication, i.e. head), or iterative reconstruction technique. FINDINGS: HEART AND MEDIASTINAL STRUCTURES: There are few scattered small mediastinal lymph nodes measure up to 2 cm in the precarinal region which may have been previously obscured by the pericardial effusion and fluid in the superior pericardial recess. Other smaller nodes are present and unchanged. Pericardial effusion is no longer apparent. The heart size is normal. The LUNGS AND PLEURAL SPACES: 1.4 x 1.4 cm nodule is present within the lingula not significantly changed. This does contain a central focus of calcification and may be due to a granuloma. No new nodules are evident. No effusions or infiltrates. BONY STRUCTURES: No acute bony abnormalities apparent. UPPER ABDOMEN: There is a small node in the periportal region not significantly changed measuring approximately 1.6 cm. ADDITIONAL FINDINGS: No other significant abnormalities. IMPRESSION: Stable CT appearance of the chest. No change in the lingular nodule at 1.4 cm which may be due to a granuloma. Continued six-month follow-up suggested to confirm 1 year stability the. Mildly prominent mediastinal lymph nodes probably unchanged. Resolved pericardial effusion Dictated b Alfredo Rossi MD 02/17/2020 12:16 Alfredo Rossi MD in [facility] 02/17/2020 12:16
== END ==
PROVIDERS: PCP Family Medicine; Visit Provider Family Medicine
DX: R91.1 Solitary pulmonary nodule (principal)
CPT/HCPCS: 71270; Q9967

== ENCOUNTER → 2021-02-13 15:23 | Outpatient (CLI) | payer OTHER, SELFPAY ==
[2021-02-13 20:07] LABS: Troponin I < 0.01 ng/ml (0.00-0.034)
== END ==
PROVIDERS: Visit Provider Physician Assistant
DX: R07.9 Chest pain, unspecified (principal); Z86.79 Personal history of other diseases of the circulatory system
CPT/HCPCS: 36415; 84484

== ENCOUNTER → 2021-02-16 15:37 | Outpatient (CLI) | payer OTHER, SELFPAY ==
--- NOTE | 2021-02-16 15:37 | CT_ITS ---
PROCEDURE: CT CHEST WO CON CLINICAL INDICATION: nodule COMPARISON: CT CT CHEST WO/W CON from 02/16/2020 TECHNIQUE: Axial images obtained with sagittal and coronal reformats. All CT scans at the facility use one or more dose reduction, viz: automated exposure control, ma/kV adjustment per patient size (including targeted exams where dose is matched to indication, i.e. head), or iterative reconstruction technique. FINDINGS: HEART AND MEDIASTINAL STRUCTURES: Small mediastinal lymph nodes once again noted not significantly changed. LUNGS AND PLEURAL SPACES: No change 1.4 cm nodule within the inferior aspect the lingula containing a small central focus of calcification consistent with a granuloma. No new nodules evident. No infiltrates or effusions. BONY STRUCTURES: No acute bony abnormalities apparent. UPPER ABDOMEN: No change small periportal node ADDITIONAL FINDINGS: No other significant abnormalities. IMPRESSION: Stable CT appearance of the chest. No change in the nodule within the lingula which may represent a granuloma Dictated by: Alfredo Rossi MD 02/16/2021 17:15 Alfredo Rossi MD in [facility] 02/16/2021 17:15
== END ==
PROVIDERS: PCP Family Medicine; Visit Provider Internal Medicine Pulmonary Disease
DX: R59.0 Localized enlarged lymph nodes (principal); R91.1 Solitary pulmonary nodule
CPT/HCPCS: 71250

== ENCOUNTER → 2021-08-26 09:24 | Outpatient (CLI) | payer OTHER, SELFPAY ==
--- NOTE | 2021-08-26 09:39 | XR_ITS ---
PROCEDURE INFORMATION: Exam: XR Chest Exam date and time: 08/26/2021 9:39 AM Age: 36 years old Clinical indication: Shortness of breath; Additional info: SOB, covid tested TECHNIQUE: Imaging protocol: XR of the chest. Views: 2 views. COMPARISON: CT CHEST WO CON 02/16/2021 3:38 PM FINDINGS: Lungs: Old granulomatous disease. No evidence of an active pulmonary process. Pleural spaces: Unremarkable. No pleural effusion. No pneumothorax. Heart/Mediastinum: Heart is considered at the upper limits of normal for size. Diaphragm: Slight elevation of the right hemidiaphragm. Bones/joints: Mild spondylosis. IMPRESSION: No evidence of an active pulmonary process. Otherwise, as above.
[2021-08-26 10:03] LABS: Coronavirus 19, PCR Not Detected (NotDetected); Influenza A, PCR Not Detected (NotDetected); Influenza B, PCR Not Detected (NotDetected)
[2021-08-26 13:46] LABS: Chloride 99 mmol/L (98-107); Potassium 4.5 mmoL/L (3.5-5.1); Sodium 134 mmol/L (136-145)
[2021-08-26 13:48] LABS: Blood Urea Nitrogen 6 mg/dl (7-17); Estimated Glomerular Filt Rate 140 ml/min (>60); GFR (African American) 169 ML/MIN (>60)
[2021-08-26 13:49] LABS: Alanine Aminotransferase 49 U/L (12-78); Albumin Level 4.6 g/dl (3.5-5.0); Albumin/Globulin Ratio 1.5 (1.1-1.8); Alkaline Phosphatase 81 U/L (38-126); Anion Gap 10.5 mEq/L (5-15); Aspartate Amino Transferase 50 U/L (14-36); Bilirubin,Total 0.6 mg/dl (0.2-1.3); Calcium 8.8 mg/dl (8.4-10.2); Carbon Dioxide 29 mmol/L (22.0-30.0); Cholesterol 229 mg/dl (140-200); Globulin 3.1 g/dL (1.3-3.2); Glucose 80 mg/dl (74-100); Total Protein,Serum 7.7 g/dl (6.3-8.2); Triglycerides 223 mg/dl (30-150); VLDL Cholesterol 45 mg/dL (0-40)
[2021-08-26 13:50] LABS: HDL Cholesterol 46 mg/dl (40-60)
[2021-08-26 14:00] LABS: Direct LDL Cholesterol 139.47 mg/dL (100-129)
[2021-08-26 14:20] LABS: Thyroid Stimulating Hormone 6.78 uIU/mL (0.465-4.68)
== END ==
PROVIDERS: PCP Family Medicine; Visit Provider Nurse Practitioner Family
DX: Z20.822 Contact with and (suspected) exposure to COVID-19 (principal); R06.02 Shortness of breath
CPT/HCPCS: 71046; 80053; 80061; 84443; C9803; U0003; U0005

== ENCOUNTER → 2021-12-27 12:44 | Outpatient (CLI) | payer OTHER, SELFPAY ==
[2021-12-27 13:30] LABS: Basophils # 0.1 K/mm3 (0-0.2); Basophils % 0.8 % (0.1-2.0); Eosinophils # 0.1 K/mm3 (0.0-0.4); Eosinophils % 1.2 % (0.1-12.0); Hematocrit 43.1 % (37.0-47.0); Hemoglobin 14.4 g/dL (12.2-16.2); Lymphocytes # 2.5 K/mm3 (0.7-4.5); Lymphocytes % 21.7 % (10-50); Mean Corpuscular HGB Conc 33.5 g/dL (31.8-35.4); Mean Corpuscular Hemoglobin 31.3 pg (27.0-31.2); Mean Corpuscular Volume 93.5 fl (81-99); Mean Platelet Volume 8.1 fl (7.4-10.4); Monocytes # 0.4 K/mm3 (0.1-1.0); Monocytes % 3.5 % (1.7-9.3); Neutrophils # 8.2 K/mm3 (1.8-7.8); Neutrophils % 72.8 % (37.0-80.0); Platelet Count 455 K/mm3 (142-424); Red Blood Count 4.61 M/mm3 (4.20-5.40); White Blood Count 11.3 K/mm3 (4.8-10.8)
[2021-12-27 13:48] LABS: Chloride 104 mmol/L (98-107); Potassium 4.3 mmoL/L (3.5-5.1); Sodium 139 mmol/L (136-145)
[2021-12-27 13:50] LABS: Alanine Aminotransferase 41 U/L (12-78); Aspartate Amino Transferase 51 U/L (14-36); Blood Urea Nitrogen 8 mg/dl (7-17); Estimated Glomerular Filt Rate 113 ml/min (>60); GFR (African American) 137 ML/MIN (>60)
[2021-12-27 13:51] LABS: Albumin Level 4.6 g/dl (3.5-5.0); Albumin/Globulin Ratio 1.5 (1.1-1.8); Alkaline Phosphatase 96 U/L (38-126); Anion Gap 12.3 mEq/L (5-15); Bilirubin,Total 0.7 mg/dl (0.2-1.3); Calcium 9.7 mg/dl (8.4-10.2); Carbon Dioxide 27 mmol/L (22.0-30.0); Glucose 108 mg/dl (74-100); Total Protein,Serum 7.6 g/dl (6.3-8.2)
[2021-12-27 14:09] LABS: HCG,Quantitative < 2 mIU/ml (0-5.42)
[2021-12-27 14:24] LABS: Thyroid Stimulating Hormone 3.19 uIU/mL (0.465-4.68)
[2021-12-27 14:33] LABS: Hemoglobin A1C 5.3 % (4.0-6.0)
[2021-12-28 09:10] LABS: FSH 10.4 mIU/mL (.); LH 3.9 mIU/mL (.)
== END ==
PROVIDERS: PCP Internal Medicine Adolescent Medicine; Visit Provider Internal Medicine Adolescent Medicine
DX: E03.9 Hypothyroidism, unspecified (principal); R53.83 Other fatigue
CPT/HCPCS: 36415; 80053; 82626; 83001; 83002; 83036; 84443; 84702; 85025

== ENCOUNTER → 2022-01-17 11:38 | Outpatient (CLI) | payer OTHER, SELFPAY | PROVIDERS: PCP Internal Medicine Adolescent Medicine; Visit Provider Internal Medicine Adolescent Medicine | DX: M54.6 Pain in thoracic spine (principal) ==

== ENCOUNTER 2022-01-17 19:37 | Emergency (ER) | payer OTHER, SELFPAY ==
--- NOTE | 2022-01-17 19:40 | XR_ITS ---
PROCEDURE INFORMATION: Exam: XR Right Ribs with PA Chest Exam date and time: 01/17/2022 7:49 PM Age: 36 years old Clinical indication: Chest wall pain; Right; Additional info: SOB, right sided lower rib pain radiating posterior. X1 week TECHNIQUE: Imaging protocol: Radiologic exam of the Right ribs with PA chest. Views: 3 views COMPARISON: CR XR CHEST 2V 08/26/2021 9:32 AM FINDINGS: Lungs: Persistent region of nodularity in the left lung base. This corresponds to a granuloma and was demonstrated on the CT examination dated 02/16/2021. Pleural spaces: Unremarkable. No pleural effusion. No pneumothorax. Heart/Mediastinum: Unremarkable. No cardiomegaly. Bones/joints: Unremarkable. IMPRESSION: No evidence of acute cardiopulmonary disease. Evidence of prior granulomatous disease.
--- NOTE | 2022-01-17 19:41 | XR_ITS ---
PROCEDURE INFORMATION: Exam: XR Thoracic Spine Exam date and time: 01/17/2022 7:44 PM Age: 36 years old Clinical indication: Pain in thoracic spine; Additional info: Pain, right sided lower rib pain radiating posterior x1 week TECHNIQUE: Imaging protocol: Radiologic exam of the thoracic spine. Views: 3 views. COMPARISON: CR XR CHEST 2V 08/26/2021 9:32 AM FINDINGS: Bones/joints: Thoracic spondylosis with multilevel disc degeneration. Mild decrease in the height of the T8, T9 and T10 vertebral bodies. Suboptimal visualization of the ribs. No definite fracture identified. Soft tissues: Unremarkable. Other findings: No markers have been placed indicate region of interest. IMPRESSION: 1. Findings compatible with mild compression fracture deformities at T8, T9 and T10. Age indeterminate. 2. Consider follow-up with dedicated rib imaging for further evaluation if appropriate.
[2022-01-17 19:45] VITALS: BP 160/89; PULSE 73; RESP 19; TEMP 36.5; O2SAT 100; BMI 42.7
--- NOTE | 2022-01-17 20:18 | HMH.EDUTC ---
[facility] [place] Clinical Impression: Rib pain on right side Disposition: Home, Self-Care Condition on Discharge: Good Additional Instructions: *Ibuprofen chaparro 6 hours with meal as needed for pain/inflammation if your doctor has said that you can take it *Not additional anti-inflammatory like motrin, aleve, advil with the above amount of ibuprofen. You can still take Tylenol every 4 hours as needed if you need something else for pain *Ice 20 minutes every 2 hours for the first 48 hours after the initial injury followed by moist heat every 20 minutes 3-4 times a day to affected area *Muscle relaxer as prescribed as needed for muscle spasms but remember, it WILL cause drowsiness You cannot take it and drive, operate machinery or care for small children. *Keep this area active, no movement leads to more stiffness, However take it easy and avoid heavy lifting pushing or pulling *Follow up with you family doctor if no improvement for further treatment Referrals: Marlon Parekh MD [Primary Care Provider] - As needed Time of Disposition: 20:43 Medical Decision Making - Juve Inquiry Pt receiving controlled substance: No Juve was queried for this patient: No Vital Signs: 01/17/22 19:45 Temperature 97.7 F Temperature Source Oral Pulse Rate [Right Brachial] 73 Respiratory Rate 19 Blood Pressure [Right Arm] 160/89 H Blood Pressure Mean [Right Arm] 112 Blood Pressure Source [Right Arm] Automatic Cuff Blood Pressure Position [Right Arm] Sitting 02 Sat by Pulse Oximetry 100 Oxygen Delivery Method Room Air Orders (Tests/Meds): ED MEDICATIONS Discontinued Medications Generic Name Dose Route Start Last Admin Trade Name Freq PRN Reason Stop Dose Admin Methylprednisolone Sodium Succinate 125 mg 01/17/22 20:38 Methylprednisolone Sod Succ 125mg Vial IM 01/17/22 20:39 ONCE ONE - Radiology Data #1 Image(s): Chest (with right ribs) Image Reviewed: Yes I have reviewed radiologist's interpretation IMPRESSION: No evidence of acute cardiopulmonary disease. Evidence of prior granulomatous disease. #2 Image(s): T-Spine Image Reviewed: Yes I have reviewed radiologist's interpretation IMPRESSION: 1. Findings compatible with mild compression fracture deformities at T8, T9 and T10. Age indeterminate. 2. Consider follow-up with dedicated rib imaging for further evaluation if appropriate. [facility] [place] HPI - General Stated complaint: back pain Time Seen by Provider: 01/17/22 20:18 Mode of Arrival: Ambulatory Source of Information: Patient Limitations: No Limitations Description of Symptoms (Recalled from Triage Doc. by RN): PATIENT C/O MID BACK PAIN AND RIGHT RIB PAIN AFTER MOVING A BED AT WORK HEENT Symptoms (Recalled from RN notes): No Resp Symptoms (Recalled from RN notes): No Skin Symptoms (Recalled from RN notes): No MS Symptoms (Recalled from RN notes): Yes Functional Status (Recalled from RN notes): WNL - History of Present Illness Provider Complaint: Patient states that she was moving a bed last week and felt a pop in her right rib area States that she is also having pain in her mid back States that her PCP give her an injection today and sent her in some muscle relaxers but the pharmacy was closed and she was unable to get them tonight and wanted to get an xray to check her ribs and chest so she came in - Related Data Home Medications Medication Instructions Recorded Confirmed Aspirin [Aspir 81] 81 mg PO DAILY 08/29/19 03/10/20 Escitalopram Oxalate [Lexapro] 20 mg PO DAILY 08/29/19 03/10/20 Esomeprazole Magnesium [Nexium] 40 mg PO DAILY 08/29/19 03/10/20 Levothyroxine Sodium 125 mcg PO DAILY 08/29/19 03/10/20 [Levothyroxine 125mcg (0.125mg) Tab] Norethindrone 0.35 mg PO DAILY 09/04/19 03/10/20 Previous Rx's Medication Instructions Recorded Metoprolol Tartrate [Lopressor 75 mg PO BID #90 tab 09/07/19 50mg tablet] furosemide 40 mg tablet 40 mg PO DAILY #30 tab 0
[2022-01-17 20:44] VITALS: BP 160/89; PULSE 73; RESP 19; TEMP 36.5; O2SAT 100
== END 2022-01-17 20:49 | disposition home or self-care (01) ==
PROVIDERS: Emergency Provider Nurse Practitioner; PCP Internal Medicine Adolescent Medicine
DX: R07.81 Pleurodynia (principal); M54.9 Dorsalgia, unspecified
CPT/HCPCS: 71101; 72072; 99212; G0463

== ENCOUNTER → 2022-05-21 11:34 | Outpatient (CLI) | payer OTHER, SELFPAY ==
[2022-05-21 12:37] LABS: Chloride 103 mmol/L (98-107); Potassium 4.2 mmoL/L (3.5-5.1); Sodium 140 mmol/L (136-145)
[2022-05-21 12:38] LABS: Hemoglobin A1C 5.4 % (4.0-6.0)
[2022-05-21 12:40] LABS: Alanine Aminotransferase 48 U/L (12-78); Albumin Level 4.2 g/dl (3.5-5.0); Albumin/Globulin Ratio 1.6 (1.1-1.8); Alkaline Phosphatase 83 U/L (38-126); Anion Gap 13.2 mEq/L (5-15); Aspartate Amino Transferase 45 U/L (14-36); Bilirubin,Total 0.5 mg/dl (0.2-1.3); Blood Urea Nitrogen 6 mg/dl (7-17); Carbon Dioxide 28 mmol/L (22.0-30.0); Estimated Glomerular Filt Rate 112 ml/min (>60); GFR (African American) 136 ML/MIN (>60); Globulin 2.7 g/dL (1.3-3.2); Total Protein,Serum 6.9 g/dl (6.3-8.2)
[2022-05-21 12:41] LABS: Calcium 9.6 mg/dl (8.4-10.2); Glucose 91 mg/dl (74-100)
[2022-05-21 13:11] LABS: Thyroid Stimulating Hormone 2.37 uIU/mL (0.465-4.68)
[2022-05-22 11:24] LABS: Insulin Level Total 27.9 uIU/mL (2.6-24.9)
== END ==
PROVIDERS: PCP Internal Medicine Adolescent Medicine; Visit Provider Internal Medicine Adolescent Medicine
DX: E03.9 Hypothyroidism, unspecified (principal); I48.0 Paroxysmal atrial fibrillation; R73.9 Hyperglycemia, unspecified
CPT/HCPCS: 36415; 80053; 83036; 83525; 84443

== ENCOUNTER 2024-04-30 10:12 | Outpatient (CLI) | payer OTHER, SELFPAY ==
--- OUTSIDE RECORDS SUMMARY | 2024-04-30 10:16 | XMS_ITS ---
Author Organization [facility] Address [address] [facility] [address] [place] [address] Care Team Providers Care Manager Forms Name Role Phone Arian Rosas Primary Care Provider Marlon Parekh Unavailable [phone] Allergies No Known Allergies REASON FOR VISIT 4 Month F/U-b/p is low, needs refills on all meds, discuss Ozempic Medications Medication SIG (Take, Route, Frequency, Duration) Notes Start Date End Date Status losartan 50 mg 1/2 tab orally once a day for 30 days Active levothyroxine 137 mcg (0.137 mg) 1 tab(s) orally once a day for 30 day(s) Active Metoprolol Tartrate 75 mg TAKE 1 TABLET BY MOUTH TWICE DAILY for 90 days Active NexIUM 40 mg 1 cap(s) orally once a day for 30 day(s) Active Centrum Adult MultiGummies Active BusPIRone Hydrochloride 10 mg 1 tab(s) orally 2 times a day for 30 days Active aspirin 81 mg 1 tab(s) orally once a day Active red yeast rice 600 mg 2 cap(s) orally tw ice a day Active Vilazodone Hydrochloride 20 mg 1 tab(s) orally once a day for 30 day(s) Active norethindrone 0.35 mg 1 tab(s) orally on ce a day for 28 day(s) Active Trulicity Pen 1.5 mg/0.5 mL as directed subcutaneously once a week for 90 days 12/23/2023 Active Social History Tobacco Use: Social History Observation Description Date Details (start date - stop date) Never Smoker NA - NA Smoking: Question Answer Notes Are you a: nonsmoker Vital Signs Temperature 97.8 degrees Fahrenheit 12/23/19 24 Blood pressure systolic 90 mm Hg 12/23/19 24 Blood pressure diastolic 60 mm Hg 024 Heart Rate 78 /min 12/23/2023 Height 6 ft 0 in in 12/23/2023 Weight 265 lbs 12/23/2023 BMI 35.94 kg/m2 12/23/2023 Encounters Encounter Location Date Provider Diagnosis [facility] [address] [place] [address] 12/23/2023 Arian Rosas Controlled type 2 diabetes mellitus without complication, without long-term current use of insulin E11.9 and Essential hypertension I10 Assessments Encounter Date Diagnosis (ICD Code) Assessment Notes Treatment Notes Treatment Clinical Notes 12/23/2023 Controlled type 2 diabetes mellitus without complication, without long-term current use of insulin (ICD-10 - E11.9) Will transition over to Trulicity which appears to be on her insurance. This remains medically necessary for insulin resistance, hyperinsulinemia and her diabetes with obesity complication. 12/23/2023 Essential hypertension (ICD-10 - I10) Cut back losartan to 1/2 tablet. Follow-up 4 months. Plan Of Treatment Medication Medication Name Sig Start Date Stop Date Notes losartan 50 mg 1/2 tab orally once a day for 30 days Ozempic 2 mg/1.5 mL (1 mg dose) 1 mg subcutaneously once a week Trulicity Pen 1.5 mg/0.5 mL as directed subcutaneously once a week for 90 days 12/23/2023 Treatment Notes Assessment Notes Controlled type 2 diabetes shekhar roland without complication, without long-term current use of insulin Will transition over to Trulicity which appears to be on her insurance. This remains medically necessary for insulin resistance, hyperinsulinemia and her diabetes with obesity complication. Essential hypertension Cut back losartan to 1/2 tablet. Follow-up 4 months. Next Appt Details Follow Up: prn, Reason: Provider Name:Arian Rosas, 09/02/2024 11:00:00 AM, [address], [place], [address], Progress Notes * Melvina ASTUDILLODOB:1984 (38 yo F)Acc No.[id number]:12/23/2023 Progress Notes Patient:?Melvina ASTUDILLO Provider:?Arian Rosas MD :1985???Age:38 Y???Sex:Female D ate:12/23/2023 Address:[address] [place] [address] W , [id number] Subjective: * Chief Complaints: * ???1. 4 Month F/U-b/p is low . 2. Needs refills on all meds. 3. discuss Ozempic. * HPI: ???gen:? Patient here to follow-up her insulin resistance syndrome and diabetes. Overall feels well, continues to lose weight slowly. Ozempic was not approved by her insurance. Blood pressure has been somewhat low. * Medical History:?HTN, Hypoth yroid, Afib, Paracardial Infusion, Plueral Infusion, Lung Nodules Calcified, Migraines, Depression, GERD, Bipolar. * Surgical History:?wisdom too th extraction . * Hospitalization/Major Diagno stic Procedure:?Covid 2019. * Family History:?Father: lissa e, COPD, GERD CAD, hyperlipidemia, Bipolar.?Mother: alive, CHF, Afib, diagnosed with Hypertension, Heart Disease.?Paternal Grand Father: .?Paternal Grand Mother: .?Maternal Grand Father: .?Maternal Grand Mother: .?Paternal uncle: .?Paternal aunt: alive.?Maternal uncle: alive.?Maternal aunt: alive.? * Social History:?Smoking?Are you a:?nonsmoker.?Recreational drug use: no. Exercise: no. Home smoke detector use: yes. Caffeine: yes, frequency:coke, tea. Living Will: No. Alcohol: socially, Type: , Frequency: ,Years: , Determination:. Sexually active: no. Travel outside [place]: no. 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 * Medications:?Taking red yeas t rice 600 mg capsule 2 cap(s) orally twice a day , Taking aspirin 81 mg delayed release tablet 1 tab(s) orally once a day , Taking Centrum Adult MultiGummies , Taking losartan 50 mg tablet 1 tab(s) orally once a day , Taking NexIUM 40 mg delayed release capsule 1 cap(s) orally once a day , Taking Metoprolol Tartrate 75 mg tablet TAKE 1 TABLET BY MOUTH TWICE DAILY , Taking levothyroxine 137 mcg (0.137 mg) tablet 1 tab(s) orally once a day , Taking Ozempic 2 mg/1.5 mL (1 mg dose) solution 1 mg subcutaneously once a week , Taking norethindrone 0.35 mg tablet 1 tab(s) orally once a day , Taking Vilazodone Hydrochloride 20 mg tablet 1 tab(s) orally once a day , Taking BusPIRone Hydrochloride 10 mg tablet 1 tab(s) orally 2 times a day , Discontinued Doxycycline Hyclate hyclate 100 mg capsule 1 cap(s) orally 2 times a day , Medication List reviewed and reconciled with the patient * Allergies:?N.K.D.A. Objective: * Vitals:?Nurse: rylie, Temp: 97. 8, RR: 18, HR: 78, BP: 90/60, Ht: 6 ft 0 in, Wt: 265, BMI:35.94. * Examination: ???General Examination: ?Heart:?Regular Rate and Rhythm, no murmur, rubs or gallops.?HEENT:?pharynx and tonsils normal, TM's normal.?Lungs:?LCTAB, No wheezes, crackles or rhonchi, Good air movement,.?Abdomen:?Soft, NTND, BSNA, No organomegaly or peritoneal signs..? Assessment: * Assessment: 1.?Controlled type 2 diabete s mellitus without complication, without long-term current use of insulin - E11.9 (Primary)?2.?Essential hypertension - I10? Plan: * Treatment: 2.?Essential hypertension? Refill losartan tablet, 50 mg, 1/2 tab, orally, once a day, 30 days, Refills 0.?? Notes: Cut back losartan to 1/2 tablet. Follow-up 4 months.?? * Follow Up:?prn * * Sign off status: Completed true * Provider:?Arian Rosas MD Date :?12/23/2023 Generated for Tonya pierce/Harshal/Harryitting on:?04/30/2024 10:16 AM EDT History and Physical Notes * Examination Category Sub-Category Detail Notes General Examination HEENT: pharynx and tonsils normal, TM's normal Heart: Regular Rate and Rhy thm, no murmur, rubs or gallops Lungs: LCTAB, No wheezes, c rackles or rhonchi, Good air movement, Abdomen: Soft, NTND, BSNA, No organomegaly or peritoneal signs.
--- OUTSIDE RECORDS SUMMARY | 2024-04-30 10:16 | XMS_ITS | Patient Health Record ---
Author Organization [facility] Address [address] [place] [address] Care Team Providers Care Sugar Chipper Machine Operator Name Role Phone JodiArian galeana Primary Care Provider Marlon Parekh [phone] Allergies No Known Allergies Results Component Value Reference Range Notes TSH (899) Reviewed date:08/20/2023 04:25:25 PM Interpretation: Performing Lab:[facility] [id number] [facility], MindjetDcqvIN[address] Steven Lyons Notes/Report: FASTING: NO FASTING:NO NON-FASTING; NON-FASTING; NON-FASTING; NON-FASTING; NON-FAST TSH 1.97 Reference Range > or = 20 Years 0.40-4.50 Ranges First trimester 0.26-2.66 Second trimester 0.55-2.73 Third trimester 0.43-2.91 CBC (INCLUDES DIFF/PLT) (639 9) Reviewed date:08/20/2023 04:25:25 PM Interpretation: Performing Lab:[facility] [id number] [place], MindjetLeoaQN[address] Steven Lyons Notes/Report: NON-FASTING; NON-FASTING; NON-FASTING; NON-FASTING; NON-FAST FASTING:NO FASTING: NO WHITE BLOOD CELL COUNT 13.2 3.8-10.8 Thousand/ uL RED BLOOD CELL COUNT 4.43 3.80-5.10 Million/uL HEMOGLOBIN 14.1 11.7-15.5 g/dL HEMATOCRIT 41.2 35.0-45.0 % MCV 93.0 80.0-100.0 fL MCH 31.8 27.0-33.0 pg MCHC 34.2 32.0-36.0 g/dL RDW 12.5 11.0-15.0 % PLATELET COUNT 447 140-400 Thousand/uL MPV 10.1 7.5-12.5 fL ABSOLUTE NEUTROPHILS 9847 8425-3392 cells/uL ABSOLUTE LYMPHOCYTES 2666 850-3900 cells/uL ABSOLUTE MONOCYTES 409 200-950 cells/uL ABSOLUTE EOSINOPHILS 224 15-500 cells/uL ABSOLUTE BASOPHILS 53 0-200 cells/uL NEUTROPHILS 74.6 LYMPHOCYTES 20.2 MONOCYTES 3.1 EOSINOPHILS 1.7 BASOPHILS 0.4 COMPREHENSIVE METABOLIC PANE L (60916) Reviewed date:08/20/2023 04:25:25 PM Interpretation: Performing Lab:[facility] [id number] [facility] Steven Lyons Notes/Report: NON-FASTING; NON-FASTING; NON-FASTING; NON-FASTING; NON-FAST FASTING:NO FASTING: NO GLUCOSE 75 65-139 mg/dL Non-fasting reference interval UREA NITROGEN (BUN) 5 7-25 mg/dL CREATININE 0.59 0.50-0.97 mg/dL EGFR 118 > OR = 60 mL/min/1.73m2 BUN/CREATININE RATIO 8 6-22 (calc) SODIUM 140 135-146 mmol/L POTASSIUM 4.2 3.5-5.3 mmol/L CHLORIDE 102 98-110 mmol/L CARBON DIOXIDE 28 20-32 mmol/L CALCIUM 9.6 8.6-10.2 mg/dL PROTEIN, TOTAL 7.3 6.1-8.1 g/dL ALBUMIN 4.4 3.6-5.1 g/dL GLOBULIN 2.9 1.9-3.7 g/dL (calc) ALBUMIN/GLOBULIN RATIO 1.5 1.0-2.5 (calc) BILIRUBIN, TOTAL 0.5 0.2-1.2 mg/dL ALKALINE PHOSPHATASE 68 31-125 U/L AST 20 10-30 U/L ALT 24 6-29 U/L LIPID PANEL, STANDARD (0890) Reviewed date:08/20/2023 04:25:25 PM Interpretation: Performing Lab:[facility] [id number] [facility] Steven Lyons Notes/Report: NON-FASTING; NON-FASTING; NON-FASTING; NON-FASTING; NON-FAST FASTING:NO FASTING: NO CHOLESTEROL, TOTAL 210 <200 mg/dL HDL CHOLESTEROL 47 > OR = 50 mg/dL TRIGLYCERIDES 294 <150 mg/dL If a non-fasting specimen was collected, consider repeat triglyceride testing on a fasting specimen if clinically indicated. Anjelica et al. J. of Clin. Lipidol. 2015;9:129-169. LDL-CHOLESTEROL 121 Reference range: <100 Desirable range <100 mg/dL for primary prevention; <70 mg/dL for patients with CHD or diabetic patients with > or = 2 CHD risk factors. LDL-C is now calculated using the Samm-Alcala calculation, which is a validated novel method providing better accuracy than the Friedewald equation in the estimation of LDL-C. Samm GATICA et al. MILIND. 2013;310(19): 2705-1156 (http://education.[employer]Stamp.it/faq/AMS272) CHOL/HDLC RATIO 4.5 <5.0 (calc) NON HDL CHOLESTEROL 163 <130 mg/dL (calc) For patients with diabetes plus 1 major ASCVD risk factor, treating to a non-HDL-C goal of <100 mg/dL (LDL-C of <70 mg/dL) is considered a therapeutic option. HEMOGLOBIN A1c (496) Reviewed date:08/20/2023 04:25:25 PM Interpretation: Performing Lab:[facility] [id number] [place] [facility]hkvAE[address] Steven Lyons Notes/Report: NON-FASTING; NON-FASTING; NON-FASTING; NON-FASTING; NON-FAST FASTING:NO FASTING: NO HEMOGLOBIN A1c 4.9 <5.7 % of total Hgb For the purpose of screening for the presence of diabetes: <5.7% Consistent with the absence of diabetes 5.7-6.4% Consistent with increased risk for diabetes (prediabetes) > or =6.5% Consistent with diabetes This assay result is consistent with a decreased risk of diabetes. Currently, no consensus exists regarding use of hemoglobin A1c for diagnosis of diabetes in children. According to [place] Diabetes Association (ADA) guidelines, hemoglobin A1c <7.0% represents optimal control in non- diabetic patients. Different metrics may apply to specific patient populations. Standards of Medical Care in Diabetes(ADA). HbA1c performed on [employer] platform. Reason For Referral No Information Medications Medication SIG (Take, Route, Frequency, Duration) Notes Start Date End Date Status losartan 25 mg 1 tab(s) orally once a day for 90 days Active NexIUM 40 mg 1 cap(s) orally once a day for 90 days Active BusPIRone Hydrochloride 10 mg 1 tab(s) orally 2 times a day for 30 days Active Centrum Adult MultiGummies Active norethindrone 0.35 mg 1 tab(s) orally on ce a day for 28 day(s) Active aspirin 81 mg 1 tab(s) orally once a day Active levothyroxine 137 mcg (0.137 mg) 1 tab(s) orally once a day for 30 day(s) Active red yeast rice 600 mg 2 cap(s) orally on ce a day Active Vilazodone Hydrochloride 20 mg 1 tab(s) orally once a day for 30 day(s) Active Metoprolol Tartrate 75 mg TAKE 1 TABLET BY MOUTH TWICE DAILY for 90 days Active Social History Tobacco Use: Social History Observation Description Date Details (start date - stop date) Never Smoker NA - NA Smoking: Question Answer Notes Are you a: nonsmoker Problems Problem Type SNOMED Code ICD Code Onset Dates Problem Status W/U Status Risk Notes Problem 93887027455906 Morbid (severe) obesity due to excess calories (E66.01) Active confirmed Problem 54146873 Generalized anxi ety disorder (F41.1) Active confirmed Problem 91896224 Essential hypertension (I10) Active confirmed Problem 51563073 Mood disorder (F39) Active confirmed Problem 42238873 Hypothyroidism, unspecified type (E03.9) Active confirmed Problem 48422025 Amenorrhea (N91.2) Active confirmed Problem 75438951 Situational anxi ety (F41.8) Active confirmed Problem 36326743 Hyperinsulinemia (E16.1) Active confirmed Problem 2485259921 Paroxysmal atria l fibrillation with rapid ventricular response (I48.0) Active confirmed Problem 671744259 Controlled type 2 diabetes mellitus without complication, without long-term current use of insulin (E11.9) Active confirmed Problem 643121122 Body mass index [BMI] 40.0-44.9, adult (Z68.41) Active confirmed Problem 318487808 Insulin resistan ce syndrome (E88.81) Active confirmed Vital Signs Heart Rate 64 /min 04/29/2024 Temperature 98.1 degrees Fahrenheit 04/29/2024 Blood pressure diastolic 80 mm Hg 04/29/2024 Height 6 ft 0 in in 04/29/2024 Blood pressure systolic 140 mm Hg 04/29/2024 Weight 283.8 lbs 04/29/2024 BMI 38.49 kg/m2 04/29/2024 Encounters Encounter Location Date Provider Diagnosis [facility] [address] [facility] [address] [place], [place] [address] 08/19/2023 Arian Besson Hypothyroidism, unspecified type E03.9 ; Hyperinsulinemia E16.1 ; Metabolic syndrome E88.810 ; Situational anxiety F41.8 and Routine medical exam Z00.00 [facility] [address] [facility] [address] [place] [address] 12/23/2023 Arian Besson Controlled type 2 diabetes mellitus without complication, without long-term current use of insulin E11.9 and Essential hypertension I10 [facility] [address] [facility] [address] [place], [place] [address] 04/29/2024 Arian Besson Hypothyroidism, unspecified type E03.9 ; Hyperinsulinemia E16.1 and Controlled type 2 diabetes mellitus without complication, without long-term current use of insulin E11.9 [facility] [address] [address] 05/17/2023 Arian Besson [facility] [address] [facility] [address] [place], [place] [address] 10/25/2023 Arian Besson [facility] [address] [facility] [address] [place], [place] [address] 04/10/2024 Arian Besson Assessments Encounter Date Diagnosis (ICD Code) Assessment Notes Treatment Notes Treatment Clinical Notes 08/19/2023 Hypothyroidism, unspecified type (ICD-10 - E03.9) Clinically euthyroid. Check labs. Given weight loss may need to reduce thyroid dose. Please note I will review all labs personally 08/19/2023 Hyperinsulinemia (ICD-10 - E16.1) Doing well with GLP agent. Labs as noted 12/23/2023 Essential hypertension (ICD-10 - I10) Cut back losartan to 1/2 tablet. Follow-up 4 months. 12/23/2023 Controlled type 2 diabetes mellitus without complication, without long-term current use of insulin (ICD-10 - E11.9) Will transition over to Trulicity which appears to be on her insurance. This remains medically necessary for insulin resistance, hyperinsulinemia and her diabetes with obesity complication. 04/29/2024 Hypothyroidism, unspecified type (ICD-10 - E03.9) Overall clinically euthyroid. No change in thyroid replacement dose. However needs labs. Given her history of metabolic problems will check cortisol, insulin, proteinuria issues and A1c. I will review all these labs personally. 04/29/2024 Hyperinsulinemia (ICD-10 - E16.1) 04/29/2024 Controlled type 2 diabetes mellitus without complication, without long-term current use of insulin (ICD-10 - E11.9) 08/19/2023 Metabolic syndrome (ICD-10 - E88.810) 08/19/2023 Situational anxiety (ICD-10 - F41.8) Trial of as needed buspirone. Discussed mechanism of action and possible side effect profile 08/19/2023 Routine medical exam (ICD-10 - Z00.00) No indication for early breast or colon screening. Non-smoker. Rare alcohol use. Weight is improving. Does need Pap smears. 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 Up-to-date with vaccines with her [facility] employment. Blood pressure well-controlled, uses seatbelts. Plan Of Treatment Pending Test Test Name Order Date M-Complete Blood Count Auto Diff 024 M-Comprehensive Metabolic Panel 04/29/20 24 M-Hemoglobin A1C 04/29/2024 M-Thyroid Panel 04/29/2024 M-Insulin Level Total 04/29/2024 M-Cortisol 04/29/2024 M-Microalb/Creat Ratio, Randm Ur 024 Next Appt Details Provider Name:Arian Rosas, 09/02/2024 11:00:00 AM, [address], [place], [address], Insurance Providers Payer Name Payer Address Payer Phone Subscriber Number Group Number Insured Name Patient Relationship to Insured Coverage Start Date Coverage End Date R [address] [address] [place] [address] [id number] [phone] Melvina Astudillo Self - patient is the insured Medications Administered Medication Instructions Date of Administration Dosage Notes Dexamethasone 4mg Injection 02/06/2023 4 mg Medical (General) History Medical History History ICD Code HTN Hypothyroid Afib Paracardial Infusion Plueral Infusion Lung Nodules Calcified Migraines Depression GERD Bipolar Surgical History Surgery Date(Month/Year) wisdom tooth extraction Hospitalization History Reason Date(Month/Year) Covid 2019
--- OUTSIDE RECORDS SUMMARY | 2024-04-30 10:16 | XMS_ITS ---
Author Organization [facility] Address [address] [place] [address] Care Team Providers Care Practical Nurse Name Role Phone Arian Rosas Primary Care Provider Marlon Parekh [phone] Medications Medication SIG (Take, Route, Frequency, Duration) Notes Start Date End Date Status levothyroxine 137 mcg (0.137 mg) 1 tab(s) orally once a day for 30 day(s) Active Encounters Encounter Location Date Provider Diagnosis [facility] [address] [place] [address] 04/10/2024 Arian Rosas Plan Of Treatment Medication Medication Name Sig Start Date Stop Date Notes levothyroxine 137 mcg (0.137 mg) 1 tab(s ) orally once a day for 30 day(s) Next Appt Details Provider Name:Arian Rosas, 09/02/2024 11:00:00 AM, [address] [facility] [address] [facility], [address], [place], [address], Progress Notes * PKMelvinaDOB:1984 (38 yo F)Acc No.[id number]:04/10/2024 Patient:?Melvina ASTUDILLO :1985???Age:38 Y???Sex:Female Address:[address] [place] [address] , [place], [address] * Refills? Refill levothyroxine tablet, 137 mcg (0.137 mg), orally, 30, 1 tab(s), once a day, 30 day(s), Refills=5 * true * Date:? Generated for Tonya pierce/Harshal/Harryitting on:?04/30/2024 10:16 AM EDT
--- OUTSIDE RECORDS SUMMARY | 2024-04-30 10:16 | XMS_ITS ---
Author Organization [facility] Address [address] [facility] [address] [place] [address] Care Team Providers Care Material Combiner Name Role Phone Arian Rosas Primary Care Provider Marlon Parekh Unavailable [phone] Allergies No Known Allergies REASON FOR VISIT 4 month check up, Insurance refused to pay for [facility] [employer] and [employer]. Medications Medication SIG (Take, Route, Frequency, Duration) Notes Start Date End Date Status losartan 25 mg 1 tab(s) orally once a day for 90 days Active NexIUM 40 mg 1 cap(s) orally once a day for 90 days Active levothyroxine 137 mcg (0.137 mg) 1 tab(s) orally once a day for 30 day(s) Active Vilazodone Hydrochloride 20 mg 1 tab(s) orally once a day for 30 day(s) Active Metoprolol Tartrate 75 mg TAKE 1 TABLET BY MOUTH TWICE DAILY for 90 days Active BusPIRone Hydrochloride 10 mg 1 tab(s) orally 2 times a day for 30 days Active Centrum Adult MultiGummies Active norethindrone 0.35 mg 1 tab(s) orally on ce a day for 28 day(s) Active aspirin 81 mg 1 tab(s) orally once a day Active red yeast rice 600 mg 2 cap(s) orally on ce a day Active Social History Tobacco Use: Social History Observation Description Date Details (start date - stop date) Never Smoker NA - NA Smoking: Question Answer Notes Are you a: nonsmoker Vital Signs Temperature 98.1 degrees Fahrenheit 04/29/20 Blood pressure systolic 140 mm Hg 04/29/20 Blood pressure diastolic 80 mm Hg Heart Rate 64 /min 04/29/2024 Height 6 ft 0 in in 04/29/2024 Weight 283.8 lbs 04/29/2024 BMI 38.49 kg/m2 04/29/2024 Encounters Encounter Location Date Provider Diagnosis [facility] [address] [facility] [address] [place] [address] 04/29/2024 Arian Rosas Hypothyroidism, unspecified type E03.9 ; Hyperinsulinemia E16.1 and Controlled type 2 diabetes mellitus without complication, without long-term current use of insulin E11.9 Assessments Encounter Date Diagnosis (ICD Code) Assessment Notes Treat ment Notes Treatment Clinical Notes 04/29/2024 Hypothyroidism, unspecified type (ICD-10 - E03.9) Overall clinically euthyroid. No change in thyroid replacement dose. However needs labs. Given her history of metabolic problems will check cortisol, insulin, proteinuria issues and A1c. I will review all these labs personally. 04/29/2024 Hyperinsulinemia (ICD-10 - E16.1) 04/29/2024 Controlled type 2 diabetes mellitus without complication, without long-term current use of insulin (ICD-10 - E11.9) Plan Of Treatment Treatment Notes Assessment Notes Hypothyroidism, unspecified type Overall clinically euthyroid. No change in thyroid replacement dose. However needs labs. Given her history of metabolic problems will check cortisol, insulin, proteinuria issues and A1c. I will review all these labs personally. Pending Test Test Name Order Date M-Complete Blood Count Auto Diff M-Comprehensive Metabolic Panel 04/29/20 M-Hemoglobin A1C 04/29/2024 M-Thyroid Panel 04/29/2024 M-Insulin Level Total 04/29/2024 M-Cortisol 04/29/2024 M-Microalb/Creat Ratio, Randm Ur Next Appt Details Follow Up: 4 Months, Reason: Provider Name:Arian Rosas, 09/02/2024 11:00:00 AM, [address] [facility], [address], [place], [address], Progress Notes * Joan ASTUDILLOB:1984 (39 yo F)Acc No.[id number]:04/29/2024 Progress Notes Patient:?Melvina ASTUDILLO Provider:?Arian Rosas MD :1985???Age:39 Y???Sex:Female D ate:04/29/2024 Address:[address] [place] [address] [facility] [id number] Subjective: * Chief Complaints: * ???1. 4 month check up. 2. I nsurance refused to pay for Ozempic and Trulicity.. * HPI: ???gen:? Melvina is here for follow-up of her hyperinsulinemia, mild diabetes, metabolic syndrome. Overall feels well, has gained weight back because her employer's insurance plan stopped paying for either semaglutide or Trulicity. She feels tired and puffy but thinks it is from her weight gain. Has had no further episodes of recurrent A-fib on very low-dose beta-kenny. * Medical History:?HTN, Hypoth yroid, Afib, Paracardial [...] Determination:. Sexually active: no. Travel outside [place]: yes, [place] 2023. 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 * Medications:?Taking red yeas t rice 600 mg capsule 2 cap(s) orally once a day , Taking aspirin 81 mg delayed release tablet 1 tab(s) orally once a day , Taking Centrum Adult MultiGummies , Taking norethindrone 0.35 mg tablet 1 tab(s) orally once a day , Taking BusPIRone Hydrochloride 10 mg tablet 1 tab(s) orally 2 times a day , Taking losartan 25 mg tablet 1 tab(s) orally once a day , Taking NexIUM 40 mg delayed release capsule 1 cap(s) orally once a day , Taking Vilazodone Hydrochloride 20 mg tablet 1 tab(s) orally once a day , Taking Metoprolol Tartrate 75 mg tablet TAKE 1 TABLET BY MOUTH TWICE DAILY , Taking levothyroxine 137 mcg (0.137 mg) tablet 1 tab(s) orally once a day , Discontinued Trulicity Pen 1.5 mg/0.5 mL solution as directed subcutaneously once a week , Medication List reviewed and reconciled with the patient * Allergies:?N.K.D.A. Objective: * Vitals:?Nurse: cathy, Pain: 0, Temp: 98.1, RR: 20, HR: 64, BP: 140/80, Ht: 6 ft 0 in, Wt: 283.8, BMI:38.49. * Examination: ???General Examination: ?General?Pleasant and Cooperative, NAD on RA,.?Heart:?Regular Rate and Rhythm, no murmur, rubs or gallops.?HEENT:?pharynx and tonsils normal, TM's normal.?Lungs:?LCTAB, No wheezes, crackles or rhonchi, Good air movement,.?Abdomen:?Soft, NTND, BSNA, No organomegaly or peritoneal signs..? Assessment: * Assessment: 1.?Hypothyroidism, unspecifi ed type - E03.9 (Primary)???2.?Hyperinsulinemia - E16.1???3.?Controlled type 2 diabetes mellitus without complication, without long-term current use of insulin - E11.9??? Plan: * Treatment: 2.?Hyperinsulinemia?LAB: M-Complete Blood Count Auto Diff ?LAB: M-Comprehensive Metabolic Panel ?LAB: M-Hemoglobin A1C ?LAB: M-Thyroid Panel ?LAB: M-Insulin Level Total ?LAB: M-Cortisol ?LAB: M-Microalb/Creat Ratio, Randm Ur 3.?Controlled type 2 diabete s mellitus without complication, without long-term current use of insulin?LAB: M-Complete Blood Count Auto Diff ?LAB: M-Comprehensive Metabolic Panel ?LAB: M-Hemoglobin A1C ?LAB: M-Thyroid Panel ?LAB: M-Insulin Level Total ?LAB: M-Cortisol ?LAB: M-Microalb/Creat Ratio, Randm Ur * Follow Up:?4 Months * * Sign off status: Completed true * Provider:?Arian Rosas MD Date :?04/29/2024 Generated for Printi ng/Faxing/eTransmitting on:?04/30/2024 10:16 AM EDT History and Physical Notes * Examination Category Sub-Category Detail Notes General Examination HEENT: pharynx and tonsils normal, TM's normal Heart: Regular Rate and Rhy thm, no murmur, rubs or gallops Lungs: LCTAB, No wheezes, c rackles or rhonchi, Good air movement, Abdomen: Soft, NTND, BSNA, No organomegaly or peritoneal signs. General Pleasant and Coopera tive, NAD on RA,
[2024-04-30 10:40] LABS: Basophils # 0.1 K/mm3 (0-0.2); Basophils % 0.6 % (0.1-2.0); Eosinophils # 0.1 K/mm3 (0.0-0.4); Eosinophils % 1.3 % (0.1-12.0); Hematocrit 41.2 % (37.0-47.0); Hemoglobin 14.5 g/dL (12.2-16.2); Lymphocytes # 2.5 K/mm3 (0.7-4.5); Lymphocytes % 25.2 % (10-50); Mean Corpuscular HGB Conc 35.1 g/dL (31.8-35.4); Mean Corpuscular Hemoglobin 31.8 pg (27.0-31.2); Mean Corpuscular Volume 90.6 fl (81-99); Monocytes # 0.4 K/mm3 (0.1-1.0); Monocytes % 3.5 % (1.7-9.3); Neutrophils # 6.9 K/mm3 (1.8-7.8); Neutrophils % 69.4 % (37.0-80.0); Platelet Count 405 K/mm3 (142-424); Red Blood Count 4.55 M/mm3 (4.20-5.40); Red Cell Distribution Width 12.9 % (11.5-17.5); White Blood Count 9.9 K/mm3 (4.8-10.8)
[2024-04-30 10:54] LABS: Creatinine,Urine Random 151 mg/dL (Not Estab.)
[2024-04-30 11:04] LABS: Hemoglobin A1C 5.3 % (4.0-6.0)
[2024-04-30 11:13] LABS: Alanine Aminotransferase 39 U/L (12-78); Albumin Level 4.6 g/dl (3.5-5.0); Albumin/Globulin Ratio 1.5 (1.1-1.8); Alkaline Phosphatase 58 U/L (38-126); Anion Gap 12.3 mEq/L (5-15); Aspartate Amino Transferase 35 U/L (14-36); Bilirubin,Total 0.9 mg/dl (0.2-1.3); Blood Urea Nitrogen 8 mg/dl (7-17); Calcium 9.6 mg/dl (8.4-10.2); Carbon Dioxide 28 mmol/L (22.0-30.0); Chloride 106 mmol/L (98-107); Estimated Glomerular Filt Rate 93 ml/min (>60); GFR (African American) 113 ML/MIN (>60); Glucose 89 mg/dl (74-100); Potassium 4.3 mmoL/L (3.5-5.1); Sodium 142 mmol/L (136-145); Total Protein,Serum 7.6 g/dl (6.3-8.2)
[2024-04-30 11:31] LABS: Free Thyroxine Index 2.4 ug/dL (5.93-13.13); T4 (Thyroxine) 8.5 ug/dl (5.53-11.0); Triiodothryronine (T3) Uptake 28 % (23.5-40.5)
[2024-04-30 11:44] LABS: Thyroid Stimulating Hormone 5.62 uIU/mL (0.465-4.68)
[2024-05-01 10:14] LABS: Insulin Level Total 13.8 uIU/mL (2.6-24.9)
== END 2024-04-30 23:59 | disposition home or self-care (01) ==
LOC: LAB 10:14
PROVIDERS: PCP Internal Medicine Adolescent Medicine; Visit Provider Internal Medicine Adolescent Medicine
DX: E03.9 Hypothyroidism, unspecified (principal); E16.1 Other hypoglycemia; E11.9 Type 2 diabetes mellitus without complications
CPT/HCPCS: 36415; 80050; 80053; 82043; 82533; 82570; 83036; 83525; 84436; 84443; 84479; 85025

== ENCOUNTER 2025-04-03 09:19 | Emergency (ER) | payer OTHER, SELFPAY ==
--- OUTSIDE RECORDS SUMMARY | 2024-10-10 17:30 | XMS_ITS ---
Author Organization [facility] D [facility] Address [address] [facility] [address] [facility] [address] [place] [address] Care Team Providers Care Forest Nursery Supervisor Name Role Phone Arian Rosas Primary Care Provider Marlon Parekh Unavailable [phone] Migration, Provider Unavailable Unavailable REASON FOR VISIT [facility] To [facility] Conversion Encounter Medications Medication SIG (Take, Route, Frequency, Duration) Notes Start Date End Date Status NexIUM 40 MG 1 cap(s) orally once a day; Duration: 90 days Active Losartan Potassium 25 MG 1 tab(s) orally once a day; Duration: 90 days Active Aspirin 81 MG 1 tab(s) orally once a day; Duration: 90 days Active Red Yeast Rice 600 MG 2 cap(s) orally once a day Active Trulicity 1.5 MG/0.5 ML DIRECTED SUBCUTANEOUSLY ONCE A WEEK; Duration: 90 DAYS *Please review and pick [facility]. If intended option is not shown, discontinue and re-order from Quick Search* 12/23/2023 Active Metoprolol Tartrate 75 MG 1 tab(s) orally 2 times a day; Duration: 90 days Active busPIRone HCl 10 MG 1 tab(s) orally 2 times a day; Duration: 30 days Active Norethindrone 0.35 MG 1 tab(s) orally once a day; Duration: 28 day(s) Active CENTRUM ADULT MULTIGUMMIES *Please review for potential replacement for e-prescription and drug interaction check* Active VILAZODONE HYDROCHLORIDE 20 MG 1 TAB(S) ORALLY ONCE A DAY; Duration: 30 DAY(S) *Please review for potential replacement for e-prescription and drug interaction check* Active Levothyroxine Sodium 137 MCG 1 tab(s) orally once a day; Duration: 30 day(s) Active Encounters Encounter Location Date Provider Diagnosis [facility] [address] [place] [address] 10/10/2024 Provider Migration Controlled type 2 diabetes mellitus without complication, without long-term current use of insulin E11.9 Assessments Encounter Date Diagnosis (ICD Code) Assessment Notes Treatment Notes Treatment Clinical Notes Section Notes 10/10/2024 Controlled type 2 diabetes mellitus without complication, without long-term current use of insulin (ICD-10 - E11.9) Plan Of Treatment Medication Medication Name Sig Start Date Stop Date Notes NexIUM 40 MG 1 cap(s) orally once a day; Duration: 90 days Losartan Potassium 25 MG 1 tab(s) orally once a day; Duration: 90 days Aspirin 81 MG 1 tab(s) orally once a day; Duration: 90 days Trulicity 1.5 MG/0.5 ML DIRECTED SUBCUTANEOUSLY ONCE A WEEK; Duration: 90 DAYS 12/23/2023 *Please review a nd pick correct strength-formulatio n from [facility] options. If intended option is not shown, discontinue and re-order from Quick Search* Metoprolol Tartrate 75 MG 1 tab(s) orally 2 times a day; Duration: 90 days busPIRone HCl 10 MG 1 tab(s) orally 2 ti mes a day; Duration: 30 days Norethindrone 0.35 MG 1 tab(s) orally on ce a day; Duration: 28 day(s) VILAZODONE HYDROCHLORIDE 20 MG 1 TAB(S) ORALLY ONCE A DAY; Duration: 30 DAY(S) *Please review for potential replacement for e-prescription and drug interaction check* Levothyroxine Sodium 137 MCG 1 tab(s) orally once a day; Duration: 30 day(s) Next Appt Details Provider Name:Arian Rosas, 05/10/2025 11:30:00 AM, [address], [address], [place], [place], [address], Progress Notes * Shira ASTUDILLO:1984 (39 yo F)Acc No.[id number]:10/10/2024 Patient: Melvina TONY Provider: Camilo Nunez :1985 A ge:39 Y S ex:Female Date:10/10/2024 Address:[address] [place] [address] [address] , [id number] Pcp:Arian Rosas Subjective: * Chief Complaints: * 1 . [facility] To [facility] Conversion Encounter. * Medical History: * Medications: T aking Red Yeast Rice 600 MG Capsule 2 cap(s) orally once a day , Taking CENTRUM ADULT MULTIGUMMIES , Notes to Pharmacist: *Please review for potential replacement for e-prescription and drug interaction check* Objective: * Vitals: Assessment: * Assessment: 1. C ontrolled type 2 diabetes mellitus without complication, without long-term current use of insulin - E11.9 Plan: * Treatment: 2. O thers Refill Aspirin Tablet Delayed Release, 81 MG, 1 tab(s), orally, once a day, 90 days, 90 Tablet, Refills 1; R efill Losartan Potassium Tablet, 25 MG, 1 tab(s), orally, once a day, 90 days, 90 Tablet, Refills 3; R efill NexIUM Capsule Delayed Release, 40 MG, 1 cap(s), orally, once a day, 90 days, 90 Capsule, Refills 3; R efill Levothyroxine Sodium Tablet, 137 MCG, 1 tab(s), orally, once a day, 30 day(s), 30, Refills 5; R efill Norethindrone Tablet, 0.35 MG, 1 tab(s), orally, once a day, 28 day(s), 28 tabs, Refills 5; R efill busPIRone HCl Tablet, 10 MG, 1 tab(s), orally, 2 times a day, 30 days, 60, Refills 5; R efill Metoprolol Tartrate Tablet, 75 MG, 1 tab(s), orally, 2 times a day, 90 days, 180 Tablet, Refills 3; R efill VILAZODONE HYDROCHLORIDE TABLET, 20 MG, 1 TAB(S), ORALLY, ONCE A DAY, 30 DAY(S), 30 TABLET, Refills 2, Notes to Pharmacist: *Please review for potential replacement for e-prescription and drug interaction check*. * * Electronic signature of Katy pal Migration on 04/03/2025 at 09:37 AM EDT Sign off status: Pending * Provider: Camilo lyn Migration Date: 0 10/10/2024 Generated for Tonya pierce/Harshal/Korin on: 0 04/03/2025 09:37 AM EDT
--- OUTSIDE RECORDS SUMMARY | 2025-03-01 06:45 | XMS_ITS ---
Author Organization [facility] Address [address] [place] [address] Care Team Providers Care Farm General Manager Name Role Phone Arian Rosas Primary Care Provider Marlon Parekh Unavailable [phone] Allergies No Known Allergies Results Component Value Reference Range Notes LIPID PANEL, STANDARD (7600) Reviewed date:03/04/2025 09:05:33 AM Interpretation: Performing Lab:[facility] [id number] [id number] Steven Lyons Notes/Report: FASTING:YES FASTING: YES NON-FASTING; NON-FASTING; NON-FASTING CHOLESTEROL, TOTAL 219 <200 mg/dL HDL CHOLESTEROL 42 > OR = 50 mg/dL TRIGLYCERIDES 327 <150 mg/dL If a non-fasting specimen was collected, consider repeat triglyceride testing on a fasting specimen if clinically indicated. Anjelica et al. J. of Clin. Lipidol. 2015;9:129-169. LDL-CHOLESTEROL 130 Reference range: <100 Desirable range <100 mg/dL for primary prevention; <70 mg/dL for patients with CHD or diabetic patients with > or = 2 CHD risk factors. LDL-C is now calculated using the Cristofer calculation, which is a validated novel method providing better accuracy than the Friedewald equation in the estimation of LDL-C. Samm SS et al. MILIND. 2013;310(19): 8244-6521 (http://education.G[employer]/faq/SVC652) CHOL/HDLC RATIO 5.2 <5.0 (calc) NON HDL CHOLESTEROL 177 <130 mg/dL (calc) For patients with diabetes plus 1 major ASCVD risk factor, treating to a non-HDL-C goal of <100 mg/dL (LDL-C of <70 mg/dL) is considered a therapeutic option. COMPREHENSIVE METABOLIC PANE L (08610) Reviewed date:03/04/2025 09:05:33 AM Interpretation: Performing Lab:[facility], DITTO.[id number] Steven Lyons Notes/Report: NON-FASTING; NON-FASTING; NON-FASTING FASTING:YES FASTING: YES GLUCOSE 64 65-99 mg/dL Fasting reference interval UREA NITROGEN (BUN) 5 7-25 mg/dL CREATININE 0.61 0.50-0.97 mg/dL EGFR 117 > OR = 60 mL/min/1.73m2 BUN/CREATININE RATIO 8 6-22 (calc) SODIUM 140 135-146 mmol/L POTASSIUM 3.9 3.5-5.3 mmol/L CHLORIDE 104 98-110 mmol/L CARBON DIOXIDE 27 20-32 mmol/L CALCIUM 9.3 8.6-10.2 mg/dL PROTEIN, TOTAL 7.2 6.1-8.1 g/dL ALBUMIN 4.4 3.6-5.1 g/dL GLOBULIN 2.8 1.9-3.7 g/dL (calc) ALBUMIN/GLOBULIN RATIO 1.6 1.0-2.5 (calc) BILIRUBIN, TOTAL 0.6 0.2-1.2 mg/dL ALKALINE PHOSPHATASE 83 31-125 U/L AST 27 10-30 U/L ALT 38 6-29 U/L HEMOGLOBIN A1c (496) Reviewed date:03/04/2025 09:05:33 AM Interpretation: Performing Lab:[facility], [id number] Steven Lyons Notes/Report: NON-FASTING; NON-FASTING; NON-FASTING FASTING:YES FASTING: YES HEMOGLOBIN A1c 5.7 <5.7 % For someone without known diabetes, a hemoglobin A1c value between 5.7% and 6.4% is consistent with prediabetes and should be confirmed with a follow-up test. For someone with known diabetes, a value <7% indicates that their diabetes is well controlled. A1c targets should be individualized based on duration of diabetes, age, comorbid conditions, and other considerations. This assay result is consistent with an increased risk of diabetes. Currently, no consensus exists regarding use of hemoglobin A1c for diagnosis of diabetes for children. REASON FOR VISIT 5 week follow up, Ate breakfast-not fasting Medications Medication SIG (Take, Route, Frequency, Duration) Notes Start Date End Date Status Trulicity 0.75 MG/0.5ML as directed Subcutaneous 03/01/2025 Active Red Yeast Rice 600 MG 2 cap(s) orally on ce a day Active Methocarbamol 500 MG as directed Orally 3 times a day; Duration: 10 days As needed, take 1-2 tablets every 8 hours as needed for muscle spasm. NO driving while taking medication. 01/18/2025 Active Vilazodone HCl 20 MG TAKE 1 TABLET BY MOUTH DAILY; Duration: 30 Active buPROPion HCl ER (XL) 150 MG 1 tablet in the morning Orally Once a day; Duration: 90 days 12/30/2024 Active Norethindrone 0.35 MG 1 tab(s) orally on ce a day; Duration: 28 day(s) Active Metoprolol Tartrate 75 MG 1 tab(s) orally 2 times a day; Duration: 90 days Active busPIRone HCl 10 MG 1 tab(s) orally 2 times a day; Duration: 30 days Active Levothyroxine Sodium 137 MCG 1 tab(s) orally once a day; Duration: 30 day(s) Active NexIUM 40 MG 1 cap(s) orally once a day; Duration: 90 days Active Aspirin 81 MG 1 tab(s) orally once a day; Duration: 90 days Active CENTRUM ADULT MULTIGUMMIES 2 tabs once a day Active Losartan Potassium 50 MG 1 tab(s) orally once a day; Duration: 90 days Active Social History Tobacco Use: Social History Observation Description Date Details (start date - stop date) Never Smoker NA - NA Smoking: Question Answer Notes Are you a: nonsmoker Section Notes: Vapes Vital Signs Temperature 97.9 degrees Fahrenheit 03/01/20 25 Heart Rate 72 /min 03/01/2025 Blood pressure systolic 140 mm Hg 03/01/20 25 Blood pressure diastolic 90 mm Hg 025 Height 6 ft 0 in in 03/01/2025 Weight 309.2 lbs 03/01/2025 BMI 41.93 kg/m2 03/01/2025 Encounters Encounter Location Date Provider Diagnosis [facility] [address] [facility] [address] [place] [address] 03/01/2025 Arian Rosas Essential hypertensi on I10 ; Hyperinsulinemia E16.1 and Generalized anxiety disorder F41.1 Assessments Encounter Date Diagnosis (ICD Code) Assessment Notes Treatment Notes Treatment Clinical Notes Section Notes 03/01/2025 Essential hypertension (ICD-10 - I10) continue losartan 50mg. BP in office 140/90 is adequate pt will cut out excess caffeine pt to continue monitoring bp at home 03/01/2025 Hyperinsulinemia (ICD-10 - E16.1) 3 month supply of trulicity given in office today Pt to monitor for signs of GI distress CMP, lipid, A1c labs drawn today 03/01/2025 Generalized anxiety disorder (ICD-10 - F41.1) mood and energy levels well maintained on buproprion. Pt states she has not had any racing heart/palpitat ions since drinking less caffeine continue buproprion, buspirone, and vybrid Plan Of Treatment Medication Medication Name Sig Start Date Stop Date Notes Trulicity 0.75 MG/0.5ML as directed Subcutaneous Treatment Notes Assessment Notes Essential hypertension continue losartan 50mg. BP in office 140/90 is adequate pt will cut out excess caffeine pt to continue monitoring bp at home Hyperinsulinemia 3 month supply of trulicity given in office today Pt to monitor for signs of GI distress CMP, lipid, A1c labs drawn today Generalized anxiety disorder mood and energy levels well maintained on buproprion. Pt states she has not had any racing heart/palpitations since drinking less caffeine continue buproprion, buspirone, and vybrid Next Appt Details Follow Up: 2 Months, Reason: Provider Name:Arian Rosas, 05/10/2025 11:30:00 AM, [address], [place], [address], Progress Notes * Shira ASTUDILLO:1984 (39 yo F)Acc No.[id number]:03/01/2025 Progress Notes Patient: D ENNISTON, Melvina Provider: Dino Rosas MD :1985 A ge:39 Y S ex:Female Date:03/01/2025 Address:[address] [id number] Subjective: * Chief Complaints: * 1 . 5 week follow up. 2. Ate breakfast-not fasting. * HPI: g en: Melvina presents today for a med check. She started taking her losartan 50mg over the weekend and her bp has been more controlled. She has had a better mood while being on buproprion she is still working on her energy levels. She has gotten better at being motivated to do things most days. She ran out of red yeast rice ran out a month ago and has not been taking it. She states her energy levels and overall well being were way better while taking ozempic. She is here for lab work to reconsider GLP med. * Medical History: H [place], Hypothyroid, Afib, Paracardial Infusion, Plueral Infusion, Lung Nodules Calcified, Migraines, Depression, GERD, Bipolar. * Surgical History: w isdom tooth extraction . * Hospitalization/Major Diagno stic Procedure: C ovid 2019. * Family History: F ather: alive, COPD, GERD CAD, hyperlipidemia, Bipolar. M other: alive, CHF, Afib, diagnosed with Hypertension, Heart Disease. P aternal Grand Father: . P aternal Grand Mother: . M aternal Grand Father: . M aternal Grand Mother: . P aternal uncle: . P aternal aunt: alive. M aternal uncle: alive. M aternal aunt: alive. * Social History: S moking A re you a: n onsmoker. R ecreational drug use: no. Exercise: no. Home smoke detector use: yes. Caffeine: yes, frequency:coke, tea. Living Will: No. Alcohol: socially, Type: , Frequency: ,Years: , Determination:. Sexually active: no. Travel outside [place]: yes, [place] 2023. 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 * Medications: T aking Red Yeast Rice 600 MG Capsule 2 cap(s) orally once a day , Taking CENTRUM ADULT MULTIGUMMIES , Notes to Pharmacist: 2 tabs once a day, Taking Aspirin 81 MG Tablet Delayed Release 1 tab(s) orally once a day , Taking Losartan Potassium 50 MG Tablet 1 tab(s) orally once a day , Taking NexIUM 40 MG Capsule Delayed Release 1 cap(s) orally once a day , Taking Levothyroxine Sodium 137 MCG Tablet 1 tab(s) orally once a day , Taking busPIRone HCl 10 MG Tablet 1 tab(s) orally 2 times a day , Taking Metoprolol Tartrate 75 MG Tablet 1 tab(s) orally 2 times a day , Taking Norethindrone 0.35 MG Tablet 1 tab(s) orally once a day , Taking buPROPion HCl ER (XL) 150 MG Tablet Extended Release 24 Hour 1 tablet in the morning Orally Once a day , Taking Vilazodone HCl 20 MG Tablet TAKE 1 TABLET BY MOUTH DAILY , Taking Methocarbamol 500 MG Tablet as directed Orally 3 times a day As needed, take 1-2 tablets every 8 hours as needed for muscle spasm. NO driving while taking medication., Medication List reviewed and reconciled with the patient * Allergies: N .K.D.A. Objective: * Vitals: N urse: KJ, Pain: 0, Temp: 97.9, RR: 16, HR: 72, BP: 140/90, Ht: 6 ft 0 in, Wt: 309.2, BMI:41.93. * Examination: G eneral Examination: General P leasant and Cooperative, NAD on RA,. Heart: R egular Rate and Rhythm, no murmur, rubs or gallops. Lungs: L CTAB, No wheezes, crackles or rhonchi, Good air movement,. Skin: w ithout acute rashes. Assessment: * Assessment: 1. E ssential hypertension - I10 (Primary) 2 . H yperinsulinemia - E16.1? 3. G eneralized anxiety disorder - F41.1 Plan: * Treatment: Value Reference Range T RIGLYCERIDES 327 H <150 - mg/dL * C HOLESTEROL, TOTAL 219 H <200 - mg/dL * H DL CHOLESTEROL 42 L > OR = 50 - mg/dL * L DL-CHOLESTEROL 130 H - mg/dL (calc) * C HOL/HDLC RATIO 5.2 H <5.0 - (calc) * N ON HDL CHOLESTEROL 177 H <130 - mg/dL (calc) * This lab was reviewed by Jhon Rosas on 03/04/2025 at 09:05 AM EDT ?LAB: COMPREHENSIVE METABOLIC PANEL (27815)* Value Reference Range G LUCOSE 64 L 65-99 - mg/dL * U NICOLAS NITROGEN (BUN) 5 L 7-25 - mg/dL * C REATININE 0.61 0.50-0.97 - mg/dL * B UN/CREATININE RATIO 8 6-22 - (calc) * S ODIUM 140 135-146 - mmol/L * P OTASSIUM 3.9 3.5-5.3 - mmol/L * C HLORIDE 104 98-110 - mmol/L * C ARBON DIOXIDE 27 20-32 - mmol/L * C ALCIUM 9.3 8.6-10.2 - mg/dL * P ROTEIN, TOTAL 7.2 6.1-8.1 - g/dL * A LBUMIN 4.4 3.6-5.1 - g/dL * G LOBULIN 2.8 1.9-3.7 - g/dL (calc ) * A LBUMIN/GLOBULIN RATIO 1.6 1.0-2.5 - (calc) * B ILIRUBIN, TOTAL 0.6 0.2-1.2 - mg/dL * A LKALINE PHOSPHATASE 83 31-125 - U/L * A ST 27 10-30 - U/L * A LT 38 H 6-29 - U/L * E GFR 117 > OR = 60 - mL/min/1 .73m2 * This lab was reviewed by Jhon Rosas on 03/04/2025 at 09:05 AM EDT ?LAB: HEMOGLOBIN A1c (496)* Value Reference Range H EMOGLOBIN A1c 5.7 H <5.7 - % * This lab was reviewed by Jhon Rosas on 03/04/2025 at 09:05 AM EDT Notes: continue losartan 50mg. BP in office 140/90 is adequate pt will cut out excess caffeine pt to continue monitoring bp at home??2.?Hyperinsulinemia? Start Trulicity Solution Auto-injector, 0.75 MG/0.5ML, as directed, Subcutaneous.?LAB: LIPID PANEL, STANDARD (7600)* Value Reference Range T RIGLYCERIDES 327 H <150 - mg/dL * C HOLESTEROL, TOTAL 219 H <200 - mg/dL * H DL CHOLESTEROL 42 L > OR = 50 - mg/dL * L DL-CHOLESTEROL 130 H - mg/dL (calc) * C HOL/HDLC RATIO 5.2 H <5.0 - (calc) * N ON HDL CHOLESTEROL 177 H <130 - mg/dL (calc) * This lab was reviewed by Jhon Rosas on 03/04/2025 at 09:05 AM EDT ?LAB: COMPREHENSIVE METABOLIC PANEL (07656)* Value Reference Range G LUCOSE 64 L 65-99 - mg/dL * U NICOLAS NITROGEN (BUN) 5 L 7-25 - mg/dL * C REATININE 0.61 0.50-0.97 - mg/dL * B UN/CREATININE RATIO 8 6-22 - (calc) * S ODIUM 140 135-146 - mmol/L * P OTASSIUM 3.9 3.5-5.3 - mmol/L * C HLORIDE 104 98-110 - mmol/L * C ARBON DIOXIDE 27 20-32 - mmol/L * C ALCIUM 9.3 8.6-10.2 - mg/dL * P ROTEIN, TOTAL 7.2 6.1-8.1 - g/dL * A LBUMIN 4.4 3.6-5.1 - g/dL * G LOBULIN 2.8 1.9-3.7 - g/dL (calc ) * A LBUMIN/GLOBULIN RATIO 1.6 1.0-2.5 - (calc) * B ILIRUBIN, TOTAL 0.6 0.2-1.2 - mg/dL * A LKALINE PHOSPHATASE 83 31-125 - U/L * A ST 27 10-30 - U/L * A LT 38 H 6-29 - U/L * E GFR 117 > OR = 60 - mL/min/1 .73m2 * This lab was reviewed by Jhon Rosas on 03/04/2025 at 09:05 AM EDT ?LAB: HEMOGLOBIN A1c (496)* Value Reference Range H EMOGLOBIN A1c 5.7 H <5.7 - % * This lab was reviewed by Jhon Rosas on 03/04/2025 at 09:05 AM EDT Notes: 3 month supply of trulicity given in office today Pt to monitor for signs of GI distress CMP, lipid, A1c labs drawn today??3.?Generalized anxiety disorder? Notes: mood and energy levels well maintained on buproprion. Pt states she has not had any racing heart/palpitations since drinking less caffeine continue buproprion, buspirone, and vybrid?? * Follow Up: 2 Months * * Sign off status: Completed true * Provider: Dino Rosas MD Date: 0 03/01/2025 Generated for Tonya pierce/Harshal/Korin on: 0 04/03/2025 09:37 AM EDT History and Physical Notes * HPI (History of Present Illness) Category Sub-Category Detail Notes Category Not es gen Hein presents today for a med check. She started taking her losartan 50mg over the weekend and her bp has been more controlled. She has had a better mood while being on buproprion she is still working on her energy levels. She has gotten better at being motivated to do things most days. She ran out of red yeast rice ran out a month ago and has not been taking it. She states her energy levels and overall well being were way better while taking ozempic. She is here for lab work to reconsider GLP med. Examination Category Sub-Category Detail Notes Category Not es General Examination Heart: Regular Rate and Rhythm, no murmur, rubs or gallops Lungs: LCTAB, No wheezes, c rackles or rhonchi, Good air movement, Skin: without acute rashes General Pleasant and Coopera tive, NAD on RA,
[2025-04-03 09:38] VITALS: BP 160/110; PULSE 69; RESP 18; TEMP 36.7; O2SAT 97; BMI 42.0
--- OUTSIDE RECORDS SUMMARY | 2025-04-03 09:38 | XMS_ITS | Patient Health Record ---
Author Organization [facility] [place] Address [address] [place] [address] Care Team Providers Care Mobile Ui Designer Name Role Phone RalphArian Primary Care Provider [phone] Marlon Parekh Unavailable [phone] Ratna Escobar Unavailable [phone] Migration, Provider Unavailable Unavailable Allergies No Known Allergies Results Component Value Reference Range Notes LIPID PANEL, STANDARD (7600) Reviewed date:03/04/2025 09:05:33 AM Interpretation: Performing Lab:[facility], [facility] [place] Notes/Report: NON-FASTING; NON-FASTING; NON-FASTING FASTING:YES FASTING: YES CHOLESTEROL, TOTAL 219 <200 mg/dL HDL CHOLESTEROL [...] estimation of LDL-C. Samm GATICA et al. MILNID. 2013;310(19): 7089-0416 (http://education.SwiftKey.com/faq/LME795) CHOL/HDLC RATIO 5.2 <5.0 (calc) NON HDL CHOLESTEROL 177 <130 mg/dL (calc) For patients with diabetes plus 1 major ASCVD risk factor, treating to a non-HDL-C goal of <100 mg/dL (LDL-C of <70 mg/dL) is considered a therapeutic option. COMPREHENSIVE METABOLIC PANE (62223) Reviewed date:03/04/2025 09:05:33 AM Interpretation: Performing Lab:JAY [employer] [employer], InnovidTjuyUP[address] Steven Lyons Notes/Report: NON-FASTING; NON-FASTING; NON-FASTING FASTING:YES [...] Reviewed date:03/04/2025 09:05:33 AM Interpretation: Performing Lab:JAY [employer] [employer], InnovidBdakKX[address] Steven Lyons Notes/Report: NON-FASTING; NON-FASTING; NON-FASTING FASTING:YES [...] A1c for diagnosis of diabetes for children. M-Complete Blood Count Auto Diff Reviewed date:05/01/2024 08:56:14 AM Interpretation: Performing Lab: Notes/Report: WBC 9.9 4.8-10.8 K/mm3 RBC 4.55 4.20-5.40 M/mm3 HGB 14.5 12.2-16.2 g/dL HCT 41.2 37.0-47.0 % MCV 90.6 81-99 fl MCH 31.8 27.0-31.2 pg MCHC 35.1 31.8-35.4 g/dL RDW 12.9 11.5-17.5 % PLT 405 142-424 K/mm3 MPV 8.0 7.4-10.4 fl NE% 69.4 37.0-80.0 % LY% 25.2 10-50 % MO% 3.5 1.7-9.3 % EO% 1.3 0.1-12.0 % BA% 0.6 0.1-2.0 % NE# 6.9 1.8-7.8 K/mm3 LY# 2.5 0.7-4.5 K/mm3 MO# 0.4 0.1-1.0 K/mm3 EO# 0.1 0.0-0.4 K/mm3 BA# 0.1 0-0.2 K/mm3 M-Comprehensive Metabolic Pa merle Reviewed date:05/01/2024 08:56:14 AM Interpretation: Performing Lab: Notes/Report: NA 142 136-145 mmol/L K 4.3 3.5-5.1 mmoL/L CL 106 98-107 mmol/L CO2 28 22.0-30.0 mmol/L GAP 12.3 5-15 mEq/L BUN 8 7-17 mg/dl CREATT 0.70 0.52-1.04 mg/dl GFRAA 113 >60 ML/MIN EGFR 93 >60 ml/min GLU 89 74-100 mg/dl CA 9.6 8.4-10.2 mg/dl BILIT 0.9 0.2-1.3 mg/dl AST 35 14-36 U/L ALT 39 12-78 U/L TP 7.6 6.3-8.2 g/dl ALB 4.6 3.5-5.0 g/dl GLOB 3.0 1.3-3.2 g/dL AGRATIO 1.5 1.1-1.8 ALP 58 38-126 U/L M-Hemoglobin A1C Reviewed date:05/01/2024 08:56:14 AM Interpretation: Performing Lab: Notes/Report: HGBA1C 5.3 4.0-6.0 % < 6% Non-Diabetic Level < 7% Controlled Diabetic Level > 8% Poorly Controlled Diabetic Level M-Thyroid Panel Reviewed date:05/01/2024 08:55:48 AM Interpretation: Performing Lab: Notes/Report: FTI 2.4 5.93-13.13 ug/dL T4 8.5 5.53-11.0 ug/dl T3U 28 23.5-40.5 % TSH 5.62 0.465-4.68 uIU/mL M-Insulin Level Total Reviewed date:08/24/2024 07:19:15 PM Interpretation: Performing Lab: Notes/Report: INSTOT 13.8 2.6-24.9 uIU/mL Performed at: [email or web address] [id number] [employer]: Edward Stephenson PhD, Phone: [phone] M-Cortisol Reviewed date:05/05/2024 07:50:52 PM Interpretation: Performing Lab: Notes/Report: MASOUD 11.7 6.2-19.4 ug/dL Please Note: The reference interval and flagging for this test is for an AM collection. If this is a PM collection please use: Cortisol PM: 2.3-11.9 Performed at: [email or web address] [id number] [employer]: Edward Stephenson PhD, Phone: [phone] H-MALBCREA Reviewed date:05/01/2024 08:56:14 AM Interpretation: Performing Lab: Notes/Report: Units: mg/g creat Normal: 0 - 29 Moderately Increased: 30 - 300 Severely Increased: >300 UCREAT 151 Not Estab. mg/dL Random urine reference range not established. 24 hour urine samples recommended. MICROALB 13.700 0-16.7 mg/L MALBCREAT 9.0 THYROID PANEL WITH TSH (7444 ) Reviewed date:09/07/2024 11:08:30 AM Interpretation: Performing Lab:JAY, [employer] [email or web address] [employer], InnovidGuukMV[address] Steven Lyons Notes/Report: NON-FASTING; NON-FASTING; NON-FASTING; NON-FASTING; NON-FAST T3 UPTAKE 28 22-35 % T4 (THYROXINE), TOTAL 9.0 5.1-11.9 mcg/dL FREE T4 INDEX (T7) 2.5 1.4-3.8 TSH 3.32 Reference Range > or = 20 Years 0.40-4.50 Ranges First trimester 0.26-2.66 Second trimester 0.55-2.73 Third trimester 0.43-2.91 LIPID PANEL, STANDARD (7600) Reviewed date:09/07/2024 11:08:30 AM Interpretation: Performing Lab:JAY, [employer] [employer] [id number] [employer], InnovidIwtkSR[address] Steven Lyons Notes/Report: NON-FASTING; NON-FASTING; NON-FASTING; NON-FASTING; NON-FAST CHOLESTEROL, TOTAL 236 <200 mg/dL HDL CHOLESTEROL 43 > OR = 50 mg/dL TRIGLYCERIDES 199 <150 mg/dL LDL-CHOLESTEROL 157 Reference range: <100 Desirable range <100 mg/dL for primary prevention; <70 mg/dL for patients with CHD or diabetic patients with > or = 2 CHD risk factors. LDL-C is now calculated using the Samm-Fredrick calculation, which is a validated novel method providing better accuracy than the Friedewald equation in the estimation of LDL-C. Samm SS et al. MILIND. 2013;310(19): 9301-8513 (http://education.SwiftKey.com/faq/TAN401) CHOL/HDLC RATIO 5.5 <5.0 (calc) NON HDL CHOLESTEROL 193 <130 mg/dL (calc) For patients with diabetes plus 1 major ASCVD risk factor, treating to a non-HDL-C goal of <100 mg/dL (LDL-C of <70 mg/dL) is considered a therapeutic option. COMPREHENSIVE METABOLIC PANE L (72821) Reviewed date:09/07/2024 11:08:30 AM Interpretation: Performing Lab:JAY [employer] [employer] [id number] [facility], [facility] HospitalIsdyHU[address] Steven Lyons Notes/Report: NON-FASTING; NON-FASTING; NON-FASTING; NON-FASTING; NON-FAST GLUCOSE 81 65-99 mg/dL Fasting reference interval UREA NITROGEN (BUN) 9 7-25 mg/dL CREATININE 0.58 0.50-0.97 mg/dL EGFR 118 > OR = 60 mL/min/1.73m2 BUN/CREATININE RATIO SEE NOTE: 6-22 (calc) Not Reported: BUN and Creatinine are within reference range. SODIUM 139 135-146 mmol/L POTASSIUM 4.7 3.5-5.3 mmol/L CHLORIDE 102 98-110 mmol/L CARBON DIOXIDE 24 20-32 mmol/L CALCIUM 9.9 8.6-10.2 mg/dL PROTEIN, TOTAL 7.8 6.1-8.1 g/dL ALBUMIN 4.6 3.6-5.1 g/dL GLOBULIN 3.2 1.9-3.7 g/dL (calc) ALBUMIN/GLOBULIN RATIO 1.4 1.0-2.5 (calc) BILIRUBIN, TOTAL 0.9 0.2-1.2 mg/dL ALKALINE PHOSPHATASE 75 31-125 U/L AST 32 10-30 U/L ALT 35 6-29 U/L MAGNESIUM (622) Reviewed date:09/07/2024 11:08:30 AM Interpretation: Performing Lab:JAY [employer] [employer] [id number] [facility], [facility] HospitalMdgjGD[address] Steven Lyons Notes/Report: NON-FASTING; NON-FASTING; NON-FASTING; NON-FASTING; NON-FAST MAGNESIUM 1.8 1.5-2.5 mg/dL MAGNESIUM (622) Reviewed date:01/19/2025 04:07:21 PM Interpretation: Performing Lab:JAY [employer] [id number] [facility], [facility] HospitalUlbyCA[address] Steven Lyons Notes/Report: NON-FASTING; NON-FASTING MAGNESIUM 1.9 1.5-2.5 mg/dL CBC (INCLUDES DIFF/PLT) (639 9) Reviewed date:09/07/2024 11:08:31 AM Interpretation: Performing Lab:JAY [employer] [facility] [employer], [facility] HospitalMclzNI[address] Steven Lyons Notes/Report: NON-FASTING; NON-FASTING; NON-FASTING; NON-FASTING; NON-FAST WHITE BLOOD CELL COUNT 11.5 3.8-10.8 Thousand/ uL RED BLOOD CELL COUNT 4.46 3.80-5.10 Million/uL HEMOGLOBIN 14.2 11.7-15.5 g/dL HEMATOCRIT 41.4 35.0-45.0 % MCV 92.8 80.0-100.0 fL MCH 31.8 27.0-33.0 pg MCHC 34.3 32.0-36.0 g/dL For adults, a slight decrease in the calculated MCHC value (in the range of 30 to 32 g/dL) is most likely not clinically significant; however, it should be interpreted with caution in correlation with other red cell parameters and the patient's clinical condition. RDW 11.8 11.0-15.0 % PLATELET COUNT 393 140-400 Thousand/uL MPV 10.5 7.5-12.5 fL ABSOLUTE NEUTROPHILS 8119 7601-3222 cells/uL ABSOLUTE LYMPHOCYTES 2726 850-3900 cells/uL ABSOLUTE MONOCYTES 437 200-950 cells/uL ABSOLUTE EOSINOPHILS 184 15-500 cells/uL ABSOLUTE BASOPHILS 35 0-200 cells/uL NEUTROPHILS 70.6 LYMPHOCYTES 23.7 MONOCYTES 3.8 EOSINOPHILS 1.6 BASOPHILS 0.3 HEMOGLOBIN A1c (496) Reviewed date:09/07/2024 11:08:31 AM Interpretation: Performing Lab:JAY [employer] [employer] [facility] [id number] [employer], [facility] HospitalZcrtNA[address] Steven Lyons Notes/Report: NON-FASTING; NON-FASTING; NON-FASTING; NON-FASTING; NON-FAST HEMOGLOBIN A1c 5.5 <5.7 % of total Hgb For the [...] diagnosis of diabetes in children. According to [place] Diabetes Association (ADA) guidelines, hemoglobin A1c <7.0% represents optimal control in non- diabetic patients. Different metrics may apply to specific patient populations. Standards of Medical Care in Diabetes(ADA). TSH W/REFLEX TO FT4 (06430) Reviewed date:01/19/2025 04:07:22 PM Interpretation: Performing Lab:JAY, [facility] [id number] [facility], [facility] CenterAqkbTO[address] Steven Lyons Notes/Report: NON-FASTING; NON-FASTING TSH W/REFLEX TO FT4 3.29 Reference Range > or = 20 Years 0.40-4.50 Ranges First trimester 0.26-2.66 Second trimester 0.55-2.73 Third trimester 0.43-2.91 Reason For Referral No Information Medications Medication SIG (Take, Route, Frequency, Duration) Notes Start Date End Date Status Levothyroxine Sodium 137 MCG 1 tab(s) orally once a day; Duration: 30 day(s) Active Aspirin 81 MG 1 tab(s) orally once a day; Duration: 90 days Active CENTRUM ADULT MULTIGUMMIES 2 tabs once a day Active Trulicity 0.75 MG/0.5ML as directed Subcutaneous 03/01/2025 Active Red Yeast Rice 600 MG 2 cap(s) orally on ce a day Active Methocarbamol 500 MG as directed Orally 3 times a day; Duration: 10 days As needed, take 1-2 tablets every 8 hours as needed for muscle spasm. NO driving while taking medication. 01/18/2025 Active Losartan Potassium 50 MG TAKE 1 TABLET BY MOUTH DAILY; Duration: 90 Active Vilazodone HCl 20 MG TAKE 1 TABLET BY MOUTH DAILY; Duration: 30 Active Esomeprazole Magnesium 40 MG TAKE 1 CAPSULE BY MOUTH DAILY; Duration: 90 Active buPROPion HCl ER (XL) 150 MG [...] times a day; Duration: 30 days Active Social History Tobacco Use: Social History Observation Description Date Details (start date - stop date) Never Smoker NA - NA Smoking: Question Answer Notes Are you a: nonsmoker Section Notes: Vapes Vapes Vapes Vapes Vapes Vapes Vapes Vapes Vapes Vapes Vapes Vapes Vapes Vapes Problems Problem Type SNOMED Code ICD Code Onset Dates Problem Status W/U Status Risk Notes Problem Morbid obesity (disorder) (593448292) Morbid (severe) obesity due to excess calories (E66.01) Active confirmed Problem Hypomagnesemia (849635995) Hypomagnesemia (E83.42) Active confirmed Problem Generalized anxiety disorder (94042224) Generalized anxiety disorder (F41.1) Active confirmed Problem Paroxysmal atrial fibrillation (063297290) Paroxysmal atrial fibrillation (I48.0) Active confirmed Problem Essential hypertension (73348006) Essential hypertension (I10) Active confirmed Problem Mood disorder (66212160) Mood disorder (F39) Active confirmed Problem Hypothyroidism (38098510) Hypothyroidism, unspecified type (E03.9) Active confirmed Problem Amenorrhea (98563451) Amenorrhea (N91.2) Active confirmed Problem Anxiety (85406459) Situational anxiety (F41.8) Active confirmed Problem Hyperinsulinemia (90722590) Hyperinsulinemia (E16.1) Active confirmed Problem Paroxysmal atrial fibrillation with rapid ventricular response (7294324536) Paroxysmal atrial fibrillation with rapid ventricular response (I48.0) Active confirmed Problem Adult attention deficit disorder (973742856) Adult attention deficit disorder (F98.8) Active confirmed Problem Type II diabetes mellitus without complication (626039094) Controlled type 2 diabetes mellitus without complication, without long-term current use of insulin (E11.9) Active confirmed Problem Body mass index 40+ - severely obese (888172210) Body mass index [BMI] 40.0-44.9, adult (Z68.41) Active confirmed Problem Insulin resistance syndrome (277642143) Insulin resistance syndrome (E88.81) Active confirmed Vital Signs Heart Rate 72 /min 03/01/2025 Temperature 97.9 degrees Fahrenheit 03/01/2025 Blood pressure diastolic 90 mm Hg 03/01/2025 Height 6 ft 0 in in 03/01/2025 Blood pressure systolic 140 mm Hg 03/01/2025 Weight 309.2 lbs 03/01/2025 BMI 41.93 kg/m2 03/01/2025 Encounters Encounter Location Date Provider Diagnosis [facility] [address] [facility] [place] [address] 10/10/2024 Provider Migration Controlled type 2 diabetes mellitus without complication, without long-term current use of insulin E11.9 [facility] [address] [facility] [place] [address] 04/29/2024 Arian Rosas Hypothyroidism, unspecified type E03.9 ; Hyperinsulinemia E16.1 and Controlled type 2 diabetes mellitus without complication, without long-term current use of insulin E11.9 [facility] [address] [facility] [place] [address] 09/02/2024 Arian Rosas Hypothyroidism, unspecified type E03.9 ; Body mass index [BMI] 40.0-44.9, adult Z68.41 ; Essential hypertension I10 ; Paroxysmal atrial fibrillation with rapid ventricular response I48.0 ; Controlled type 2 diabetes mellitus without complication, without long-term current use of insulin E11.9 and Routine medical exam Z00.00 [facility] [address] [facility] [address] [place] [address] 12/30/2024 Arian Rosas Adult attention defi cit disorder F98.8 ; Hypothyroidism, unspecified type E03.9 ; Essential hypertension I10 and Paroxysmal atrial fibrillation with rapid ventricular response I48.0 [facility] [address] [facility] [place] [address] 01/18/2025 Ratna Escobar Hypomagnesemia E83.4 2 ; Acute left-sided low back pain without sciatica M54.50 ; Hypothyroidism, unspecified type E03.9 and Paroxysmal atrial fibrillation I48.0 [facility] [address] [facility] [place] [address] 01/25/2025 Arian Rosas Essential hypertensi on I10 and Generalized anxiety disorder F41.1 [facility] [address] [facility] [address] [place] [address] 03/01/2025 Arian Rosas Essential hypertensi on I10 ; Hyperinsulinemia E16.1 and Generalized anxiety disorder F41.1 [facility] [address] [place], [place] [address] 04/10/2024 Arian Rosas [facility] [address] [place], [place] [address] 09/02/2024 Arian Rosas [facility] [address] [facility] [address] [place] [address] 09/07/2024 Arian Rosas Controlled type 2 diabetes mellitus without complication, without long-term current use of insulin E11.9 Assessments Encounter Date Diagnosis (ICD Code) Assessment Notes Treatment Notes Treatment Clinical Notes Section Notes 04/29/2024 Hypothyroidism, unspecified type (ICD-10 - E03.9) Overall clinically euthyroid. No change in thyroid replacement dose. However needs labs. Given her history of metabolic problems will check cortisol, insulin, proteinuria issues and A1c. I will review all these labs personally. 04/29/2024 Hyperinsulinemia (ICD-10 - E16.1) 09/02/2024 Hypothyroidism, unspecified type (ICD-10 - E03.9) Check labs as noted, appears clinically euthyroid 09/02/2024 Body mass index [BMI] 40.0-44.9, adult (ICD-10 - Z68.41) Given patient's host of medical problems and prediabetes/diab etes I am completely in a loss why her insurance will not approve this medication. Will get her labs today and try to preauthorize a GLP once again 09/07/2024 Controlled type 2 diabetes mellitus without complication, without long-term current use of insulin (ICD-10 - E11.9) 10/10/2024 Controlled type 2 diabetes mellitus without complication, without long-term current use of insulin (ICD-10 - E11.9) 12/30/2024 Hypothyroidism, unspecified type (ICD-10 - E03.9) Up-to-date with thyroid testing 12/30/2024 Adult attention deficit disorder (ICD-10 - F98.8) Certainly could be criteria for ADHD. Or poor candidate for stimulant medication given her history of paroxysmal A-fib. Will trial low-dose Wellbutrin, discussed expectations and off-label use 01/18/2025 Hypomagnesemia (ICD-10 - E83.42) Mag 1.8 at last check, with history of a fib and muscle pain will re-check. I personally will review all labs once final. 01/18/2025 Acute left-sided low back pain without sciatica (ICD-10 - M54.50) Low Back Pain: Exercises material was printed. I personally will review all labs once final. Discussed the etiology and expected course of back pain related to muscle spasm/strain. Discussed the role of pain medications/anti -inflammatories including Ibuprofen and Tylenol, heat pad, stretches, and to walk 30 mins a day. Steroid shot today and PRN muscle relaxer ordered. Counseled patient to not drive when taking this medication. Gave note off work for a few days, back to work SaturdayJanuary 23. Also, discussed signs and symptoms of worsening condition that may warrant reassessment in clinic or ED. If no improvement in a week then will consider PT. Patient voices understanding and agrees with the plan of care above. 01/25/2025 Generalized anxiety disorder (ICD-10 - F41.1) - Started buproprion 150mg 3 weeks ago - Feels symptoms of irritability and lack of focus are improving, still having difficulty with motivation to do tasks at home - Will contine regimen of buproprion, buspirone and Vybrid - Follow up in one month 01/25/2025 Essential hypertension (ICD-10 - I10) - BP elevated today 150s/90s - Encouraged to check at home and will reassess at next visit - Continue losartan 25mg 03/01/2025 Essential hypertension (ICD-10 - I10) continue losartan 50mg. BP in office 140/90 is adequate pt will cut out excess caffeine pt to continue monitoring bp at home 03/01/2025 Hyperinsulinemia (ICD-10 - E16.1) 3 month supply of trulicity given in office today Pt to monitor for signs of GI distress CMP, lipid, A1c labs drawn today 01/18/2025 Hypothyroidism, unspecified type (ICD-10 - E03.9) Continue replacement. I personally will review all labs once final. 03/01/2025 Generalized anxiety disorder (ICD-10 - F41.1) mood and energy levels well maintained on buproprion. Pt states she has not had any racing heart/palpitatio ns since drinking less caffeine continue buproprion, buspirone, and vybrid 12/30/2024 Essential hypertension (ICD-10 - I10) Pressure under good control 09/02/2024 Essential hypertension (ICD-10 - I10) Excellent blood pressure control 04/29/2024 Controlled type 2 diabetes mellitus without complication, without long-term current use of insulin (ICD-10 - E11.9) 09/02/2024 Paroxysmal atrial fibrillation with rapid ventricular response (ICD-10 - I48.0) History of A-fib but well-controlled on metoprolol. No changes in plan 01/18/2025 Paroxysmal atrial fibrillation (ICD-10 - I48.0) No recent flares. Discouraged vaping. Checking mag level with being 1.8 previously and would like for her mag to be > 2.0. Controlled on current regiemn. I personally will review all labs once final. 12/30/2024 Paroxysmal atrial fibrillation with rapid ventricular response (ICD-10 - I48.0) Well-controlled on current metoprolol dosing 09/02/2024 Controlled type 2 diabetes mellitus without complication, without long-term current use of insulin (ICD-10 - E11.9) See notes above 09/02/2024 Routine medical exam (ICD-10 - Z00.00) Up-to-date with vaccines. No indication for early colon or mammography screening. Has not had a Pap smear in 4 years since her [employer] retired. I encouraged her to make an appointment with one of my female nurse practitioners or with the [employer] group. She will do this. Does not smoke. Alcohol rarely. No illicit drugs. Has had hep and HIV screening. Depression issues as noted above. No falls, safe home environment, uses seatbelt. Plan Of Treatment Pending Test Test Name Order Date M-Microalb/Creat Ratio, Randm Ur 024 Next Appt Details Provider Name:Arian Max Jodikervin, 05/10/2025 11:30:00 AM, [address], [place], [address], Insurance Providers Payer Name Payer Address Payer Phone Subscriber Number Group Number Insured Name Patient Relationship to Insured Coverage Start Date Coverage End Date [place] [address] [address] [place] [address] [id number] [phone] DieterMelvina escudero Self - patient is the insured Medications Administered Medication Instructions Date of Administration Dosage Notes Dexamethasone 4mg Injection 02/06/2023 4 mg Dexamethasone 4mg Injection 01/18/2025 4 mg Medical (General) History Medical History History ICD Code HTN Hypothyroid Afib Paracardial Infusion Plueral Infusion Lung Nodules Calcified Migraines Depression GERD Bipolar Surgical History Surgery Date(Month/Year) wisdom tooth extraction Hospitalization History Reason Date(Month/Year) Covid 2020
[2025-04-03 09:46] LABS: COC Drug Screen Collection Only
--- NOTE | 2025-04-03 09:46 | ED_ITS ---
Discharge Plan Disposition Patient Disposition: Home, Self-Care Prescriptions Prescriptions: No Action colchicine 0.6 mg tablet 0.6 mg PO BID Qty: 60 2RF furosemide 40 mg tablet 40 mg PO DAILY Qty: 30 6RF losartan 25 mg tablet 25 mg PO DAILY Qty: 90 3RF aspirin 81 MG tablet,delayed release (DR/EC) 81 mg PO DAILY esomeprazole magnesium 40 MG capsule,delayed release(DR/EC) 40 mg PO DAILY levothyroxine 125 MCG tablet 125 mcg PO DAILY escitalopram oxalate 20 MG tablet 20 mg PO DAILY norethindrone (contraceptive) 0.35 MG tablet 0.35 mg PO DAILY Patient Comments: take 1 tablet by mouth once daily as directed metoprolol tartrate 50 MG tablet 75 mg PO BID Qty: 90 2RF Referrals Follow up/Referrals: Arian Rosas MD [Primary Care Provider, Internal Medicine] - See instructions Activity Restrictions/Add. Instructions Additional Instructions/Restrictions: Please return to the emergency department with any significant neurologic symptoms such as weakness or numbness in your upper extremities changes in mental status or other concerns. You may take your muscle relaxer that you have at home in addition to Tylenol and/or ibuprofen as needed for your symptoms. Clinical Impressions Clinical Impression: Fall, Cervical muscle strain Print Language Print Language: Kazakh Discharge ED Provider: Francisco Barreto General Adult HPI General Stated complaint: slipped on wet floor, stiff neck. 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 She was walking and slipped and states that she had somewhat of doing the splits but then fell back onto her neck. Only complaints at the moment are some paraspinal muscular pain in the upper cervical spine. She denies any neurologic symptoms any loss of consciousness being on any anticoagulants or injuries elsewhere. Related Data Home Medications ?Medication ?Instructions ?Recorded ?Confirmed aspirin 81 mg tablet,delayed 81 mg PO DAILY HEART HEAL TH 08/29/19 03/10/20 release escitalopram oxalate 20 mg tablet 20 mg PO DAILY Depre ssion 08/29/19 03/10/20 esomeprazole magnesium 40 mg 40 mg PO DAILY GERD 08/2903/10/20 capsule,delayed release levothyroxine 125 mcg tablet 125 mcg PO DAILY THYROID 08/29/19 03/10/20 norethindrone (contraceptive) 0.35 0.35 mg PO DAILY Bi rth control 09/04/19 03/10/20 mg tablet Previous Rx's ?Medication ?Instructions ?Recorded metoprolol tartrate 50 mg tablet 75 mg (1.5 x 50 mg) P O BID #90 tabs 09/07/19 furosemide 40 mg tablet 40 mg PO DAILY #30 tabs 01/05 12/25 colchicine 0.6 mg tablet 0.6 mg PO BID #60 tabs 03/10 losartan 25 mg tablet 25 mg PO DAILY #90 tabs 07/09 07/29 Allergies Allergy/AdvReac Type Severity Reaction Status Date / Time No Known Allergies Allergy Verified 03/10/20 13:16 [facility] Disclaimer: The information contained in this section may have been updated after the patient was seen, as this information can be updated by other users. Social History Smoking Status: Current every day smoker tobacco type: cigarettes packs per day: 1 alcohol intake: never substance use type: denies use current occupational status: other Travel in the last 8 weeks?: None caffeine: Yes Have you lived/traveled outside [place] in past 30 days?: No Contact w/someone who lives/traveled outside [place] past 30 days?: No Exposure to someone with infectious disease in past 14 days?: No Do you have a fever (greater than 100.4 F or 38 C)?: No Have you tested positive for COVID-19?: No Exposed to someone with COVID-19 in past 14 days?: No Do you have a sore throat?: No Do you have a cough?: No Do you have any weakness?: No Do you have any diarrhea?: No Are you experiencing any unusual bleeding?: No Do you have any muscle aches/pain?: Yes Do you have any abdominal pain?: No Are you experiencing loss of taste or smell?: No Other Medical History Have you received the Flu Vaccine for this season: No Have you received the Pneumonia Vaccine: No ROS Obtained: Yes All systems reviewed & no additional complaints except as documented Physical Exam General General appearance: alert and in no apparent distress Head Head exam: atraumatic and normocephalic Neck Neck exam: Present tenderness (There is no midline cervical spine tenderness there is paraspinal muscular tenderness off to the right near the base of the occipital region patient has normal bilateral upper extremity neurologic exam including strength and sensation) Respiratory Respiratory exam: Present normal lung sounds bilaterally Cardiovascular Cardiovascular exam: Present regular rate Neurological Exam Neurological exam: Present alert and oriented X3 Medical Decision Making Medical Records Screening: Per USPSTF and CDC recommendations, given the prevalence of disease in our region, it is our hospital?s policy to screen for HIV and viral Hepatitis for all patients aged 18 and over and those with ongoing risk factors. Juve Inquiry Pt receiving controlled substance: No Medical Decision Narrative: Patient with above history and physical patient is [place] CT head negative and Nexus negative no indication for any emergent imaging of the head or cervical spine this was explained to the patient who understands and agrees. Patient does have some paraspinal muscular tenderness this is most likely musculoskeletal strain associated with this fall. I offered to prescribe her some muscle relaxers however she has some methocarbamol at home that she states she will take if she needs it. She will also take anti-inflammatory medication or [id number] pain medicine if needed. There certainly is a complication possibility that she could develop symptoms associated with disability arthritis herniated disks etc. downstream and it is important that she keep an eye closely on her symptoms and return to the emergency department any significant weakness or upper extremity paresthesias etc. She is very aware of this. At the moment however the likelihood of needing emergent neurosurgical interventions near 0 and this is explained to the patient who is in agreement. Patient is discharged in stable condition. Critical Care Critical Care Time Critical Care Time: No
[2025-04-03 10:01] VITALS: BP 157/103; PULSE 69; RESP 18; TEMP 36.7; O2SAT 98
== END 2025-04-03 10:03 | disposition home or self-care (01) ==
PROVIDERS: Emergency Provider Student in an Organized Health Care Education/Training Program; PCP Internal Medicine Adolescent Medicine
DX: S16.1XXA Strain of muscle, fascia and tendon at neck level, initial encounter (principal); M54.2 Cervicalgia; W01.10XA Fall on same level from slipping, tripping and stumbling with subsequent striking against unspecified object, initial encounter
CPT/HCPCS: 99283